=== PATIENT | female | born 1950 | race Caucasian/White ===

== ENCOUNTER → 2018-02-25 14:03 | Outpatient (CLI) | payer MEDICARE, SELFPAY ==
--- NOTE | 2018-02-25 14:05 | BI_ITS ---
MAMMOGRAPHY - BILATERAL SCREENING REASON FOR EXAM: Female, 67 years old. Routine annual screening examination. PERTINENT HISTORY: Non-contributory. Remote right excisional breast biopsy. TECHNIQUE: Digital bilateral breast meenu (3D mammographic acquisition) in the CC and MLO projections. 2-D mediolateral oblique (MLO) and craniocaudad (CC) views of both breasts were obtained. CAD: Full Field Digital Mammography with Computer Added Detection was performed. COMPARISON: Comparison is made with prior study dated October 30, 2016 and May 27, 2015. FINDINGS: Breast Composition: There are scattered areas of fibroglandular density. There are no dominant masses or suspicious calcifications. No other significant abnormalities are identified. There has been no significant change since the prior study. BI/SCREENING MAMM (CAD), BILAT IMPRESSION: Stable bilateral screening mammogram. Yearly follow-up mammogram recommended. (A) ASSESSMENT CATEGORY: BIRADS Category 1: Negative. A letter regarding these results will be sent to the patient by the facility within 30 days. Approximately 10% of breast cancers are not detected by mammography. A normal mammogram should not delay biopsy of a clinically suspicious abnormality. [id number] Electronically Signed: Louie Forbes MD at 9:54 EST Tel [phone], Service support ,
== END ==
PROVIDERS: Family Provider Family Medicine; PCP Family Medicine; Referring Provider Family Medicine; Visit Provider Family Medicine
DX: Z12.31 Encounter for screening mammogram for malignant neoplasm of breast (principal)
CPT/HCPCS: 77063; 77067

== ENCOUNTER → 2018-10-11 | Outpatient (CLI) | payer MEDICARE, SELFPAY ==
--- NOTE | 2018-10-11 15:29 | RAD_ITS ---
STUDY: X-RAY - CERVICAL SPINE REASON FOR EXAM: Female, 68 years old. Spasms. Radiculopathy. TECHNIQUE: 7 view(s) of the cervical spine were obtained including flexion and extension. COMPARISON: None FINDINGS: Normal anterior atlantoaxial articulation. Normal odontoid process. Normal cervical lordosis. Limited flexion and extension but with no subluxations. Prominent degenerative disc disease at C5-C6. There is mild multi-level osseous foraminal stenosis. The soft tissue structures are unremarkable. RAD/Cerv Spine Obl/Flex/Ext Comp IMPRESSION: No acute abnormality. Prominent degenerative changes at C5-C6. Electronically Signed: Keyshawn Dobbs MD at 17:18 EDT , Service support ,
[2018-10-11 17:15] LABS: Absolute Neutrophil Count 7.2 X10^3/uL (2.0-7.7); Basophil# 0.01 X10^3/uL; Basophil% 0.1 % (0-1); Eosinophil# 0.01 X10^3/uL; Eosinophils% 0.1 % (0-5); Hematocrit 40.1 % (37-47); Hemoglobin 13.4 g/dl (12.0-15.0); Lymphocyte % 19.6 % (19-41); Mean Corp Hgb Conc 33.4 g/gl (32-36); Mean Corpuscular Hgb 27.9 pg (27.0-32.0); Mean Corpuscular Volume 83.4 fL (81-99); Mean Platelet Vol. 11.1 fl (6.2-12.0); Monocyte# 0.58 X10^3/uL; Neutrophil # 7.15 X10^3/uL (2.7-7.7); POSITIVE COUNT NO; POSITIVE DIFFERENTIAL NO; POSITIVE MORPHOLOGY NO; Platelet Count 215 K/mm3 (150-450); RBC Distribution Width CV 12.6 % (11.6-14.6); RBC Distribution Width SD 37.9 fl (35.1-43.9); Red Blood Count 4.81 M/mm3 (4.2-5.4); White Blood Count 9.7 K/mm3 (4.4-11.0)
[2018-10-11 17:21] LABS: Erythrocyte Sedimentation Rate 11 mm/hr (0-30)
[2018-10-11 17:34] LABS: AST(SGOT) 21 U/L (15-37); Alanine Aminotransfer ALT/SGPT 25 U/L (13-56); Albumin, Serum 3.7 g/dL (3.2-5.0); Alkaline Phosphatase 91 U/L (45-117); Anion Gap 9 (5-15); BUN 18 mg/dL (7-18); BUN/Creat Ratio 21.6 RATIO (10-20); CRP 4.86 mg/L (0.0-3.0); Calcium,Total 8.8 mg/dL (8.5-10.1); Chloride 106 mmol/L (98-107); Creatinine, Serum 0.84 mg/dL (0.55-1.02); EST Glomerular Filtration Rate 73 mL/min (>60); Est Glom Filt Rate - Afr Amer 88 mL/min (>60); Globulin 3.7 g/dL (2.2-4.2); Glucose 93 mg/dL (74-106); Potassium 3.8 mmol/L (3.5-5.1); Protein, Total 7.4 g/dL (6.4-8.2); Sodium Level 141 mmol/L (136-145); Thyroid Stim Hormone (TSH) 1.13 uIU/mL (0.358-3.74); Vitamin B12 914 pg/mL (211-911)
== END | disposition home or self-care (01) ==
PROVIDERS: Family Provider Family Medicine; PCP Family Medicine; Referring Provider Family Medicine; Visit Provider Family Medicine
DX: M62.838 Other muscle spasm (principal); M54.12 Radiculopathy, cervical region; M50.90 Cervical disc disorder, unspecified, unspecified cervical region; E55.9 Vitamin D deficiency, unspecified; C49.9 Malignant neoplasm of connective and soft tissue, unspecified; R73.01 Impaired fasting glucose; R20.2 Paresthesia of skin; E53.8 Deficiency of other specified B group vitamins
CPT/HCPCS: 36415; 72052; 80053; 82306; 82607; 84439; 84443; 85025; 85652; 86140

== ENCOUNTER 2019-01-06 07:31 | Day surgery (SDC) | payer MEDICARE, SELFPAY ==
[2018-11-10 15:28] VITALS: BMI 33.7
--- NOTE | 2019-01-05 18:48 | PCM.HP.BLA ---
History and Physical Date of Admission: 01/06/19 HISTORY OF PRESENT ILLNESS 68 year old woman presents for evaluation for TBSE. She has concerns about a lesion on her left melolabial fold that has increased in size over the last several months and has developed irregular borders. She denies fever. She denies trauma. She denies recent infection. She denies bleeding. No ulceration. Lesion is nontender. PAST MEDICAL HISTORY Angioma Cancer Carpal tunnel syndrome Emotional depression Fibromyalgia Frequent headaches GERD (gastroesophageal reflux disease) ED (obstructive sleep apnea) Restless leg syndrome PAST SURGICAL HISTORY EXCISION PELVIC LEIOMYOSARCOMA hysterectomy laparoscopic gastric banding IMPLANTATION OF INTERSTIM ALLERGIES No Known Allergies MEDICATIONS anastrozole eszopiclone pramipexole venlafaxine ER FAMILY HISTORY Unknown - No problems noted. SOCIAL HISTORY Smoking Status: Former smoker how long ago did patient quit smokin YEARS alcohol intake: never substance use type: does not use REVIEW OF SYSTEMS General - Denies fever, fatigue, and weight loss. Eyes - Denies cataracts and glaucoma. ENT - Denies nasal congestion and sore throat. Endocrine - Denies excessive thirst and urination. Skin - Denies skin cancer. Has enlarging lesion left melolabial fold. Musculoskeletal - Denies joint pain, joint stiffness, weakness of muscles and joints, back pain, and arthritis. Neuro - Denies headaches. Cardiovascular - Denies chest pain, fatigue, and shortness of breath with exertion. Psych - Denies anxiety. Has depression. Respiratory - Denies chronic cough and shortness of breath. Has sleep apnea. Patient is a former smoker. Gastrointestinal - Denies nausea, vomiting, diarrhea, and constipation. Hematologic - Denies abnormal bruising and bleeding. Genitourinary - Denies hematuria and urinary frequency. PHYSICAL EXAMINATION General - Alert and Oriented. HEENT - PERRL. EOMI. Throat is clear. On the left melolabial fold is a nodular lesion that measures 5 mm. Slight coloration. Has irregular borders. Raised in configuration. No ulceration. Lesion is nontender. Neck - Supple and nontender. No cervical adenopathy. No suspicious lesions noted. Lungs - Clear to auscultation. Heart - Regular rate and rhythm. Abdomen - Soft and nondistended. Extremities - FROM. No axillary adenopathy. Radial pulses are palpable. No suspicious lesions noted. Neuro - CN II-XII grossly intact. Psych - Normal mood and affect. ASSESSMENT 1. 5 mm lesion left melolabial fold. 2. Former smoker. PLAN Recommend excision of the lesion left melolabial fold area and send the lesion to Pathology as a frozen section for analysis to rule out carcinoma. If carcinoma is present then further excision will be done with possible skin flap reconstruction. Surgery would be done under local anesthesia and IV sedation on an outpatient basis. Patient was informed of the risks and complications of the procedure including alternatives to surgery. These were discussed with the patient personally. Patient voices understanding and wishes to proceed. Some of the risks and complications were included in a form from the [employer].
[2019-01-06 07:53] VITALS: BP 131/76; PULSE 66; RESP 16; TEMP 36.8; O2SAT 100; BMI 34.6
[2019-01-06] MEDS: Lactated Ringers 1,000 ML 100 ML IV (08:06)
--- NOTE | 2019-01-06 08:55 | LES_PTH ---
PATIENT: KAYLA WILKERSON [place] [facility] [id number] AGE/SX: 68/F ROOM: RE01/06/[address]: Dr. Dallas Pryor MD : 1950 BED: DIS: 01/06/2019 SPEC #: [id number] RECD: 01/06/19 12:58 STATUS: ROSEANN REAntonio #: [id number] PALAK: 01/06/19 08:[address]: Dallas Pryor DEPT: SURGICAL PATHOLOGY RECD BY: Zeke Aquino ENTERED: 01/06/19 13:36 SP TYPE: Lesion OTHR DR: Dr. Douglas Willson MD Tissues: Skin of face, NOS Procedures: Surgery Specimen Level IV HEADER OPERATION: Excision lesion, melolabial fold by commissure PRE-OP DIAGNOSIS: 5 mm lesion left melolabial fold TISSUE SUBMITTED: 5 mm lesion left melolabial fold MICROSCOPIC DIAGNOSIS Left melolabial fold lesion, excisional biopsy: Consistent with hydrocystoma. FLORA:jeffry 01/09/19 COMMENT Case has been reviewed in consultation with Dr. Napier who concurs with the above diagnosis. IDC:AM MICROSCOPIC DESCRIPTION Slides are reviewed. GROSS DESCRIPTION Received in fixative is one container labeled with the patient's name and designated 5 mm lesion left melolabial fold. The specimen consists of an irregular piece of skin measuring 1 x 0.5 x 0.1 cm. A suture is noted, however, is not identified. The suture area is inked black. The rest of the specimen is inked blue. The specimen is submitted entirely in one cassette. It will be sectioned at the time of embedding. / FLORA:jeffry 01/06/19 TC:5 CPT: 86804
[2019-01-06] MEDS: Mupirocin Ointment 22gm Tube 1 APPLIC (09:37)
--- NOTE | 2019-01-06 09:46 | OP.PCM_ITS ---
Report of Operation Date of Procedure: 01/06/19 Pre-Operative Diagnosis: 1. 5 mm painful lesion left melolabial fold. 2. Former smoker. Post-Operative Diagnosis: Same. Surgery/Procedure Performed:: Excision 5 mm painful lesion left melolabial fold with 15 mm layered closure. Description of Surgical Findings:: 68 year old woman presents for evaluation for TBSE. She has concerns about a lesion on her left melolabial fold that has increased in size over the last several months and has developed irregular borders. She denies fever. She denies trauma. She denies recent infection. She denies bleeding. There is some discomfort when the lesion gets bumped. No ulceration. Patient was informed of the risks and complications of the procedure including alternatives to surgery. These were discussed with the patient personally. Patient voices understanding and wishes to proceed. Some of the risks and complications were included in a form from the [employer]. 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 Specimen's removed: Lesion left melolabial fold to Pathology. Drains: None. Estimated Blood Loss (mL): 2 ml. Description of Procedure: Patient was taken to OR in supine position and was given IV sedation. The left face was prepped and draped in the usual fashion. SCD's were placed for DVT prophylaxis. Perioperative antibiotics were given intravenously. The lesion left melolabial fold was infiltrated with xylocaine and epinephrine. After waiting 5 minutes for the anesthetic to take effect, I started to excise the lesion in an intradermal fashion because the plan was to send the lesion to Pathology as a frozen section for analysis to rule out carcinoma. However during the attempt at intradermal excision, the lesion was cystic in nature with some thickened mucus drainage. Therefore no frozen section will be done today. The cystic lesion created a subcutaneous defect so wound closure will be needed. Clinically the cystic lesion looked benign in nature. So wound closure will be done in a layered fashion. I excised this cystic lesion in an oblique elliptical fashion within the skin crease down into the subcutaneous tissue. A suture was placed at 12 oclock position for pathology orientation. The lesion was sent to Pathology for analysis to rule out carcinoma. I excised the lesion with a 1 mm margin in all directions thus making it a 7 mm excision with a 15 mm layered closure. Hemostasis was obtained with electrocautery. The wound was closed in a layered fashion with 5-0 Monocryl interrupted sutures for the deep dermis and subcutaneous tissue. The skin was approximated with 6-0 Prolene simple interrupted sutures. Steri-strips were applied followed by antibiotic ointment. Patient tolerated the procedure well and was sent to PACU in satisfactory condition. Patient will be sent home on antibiotics and pain medication. She will keep her head elevated during the initial postoperative period. Patient will followup in a week for a wound check and for discussion of the pathology report and for removal of the sutures. Grafts/Implants Used: None. - Complications None. - Admit VTE Documentation VTE Present on Admission: No VTE Mechan Device Prophylaxis: SCD's VTE Pharm Prophylaxis ordered?: No Code Visit Surgery Charges CPT - 90080 ICD-10 - D23.9, R20.8, D49.2, Z87.891 09080 D23.9, R20.8, D49.2, Z87.891
[2019-01-06 09:47] VITALS: BP 111/67; BP 131/76; PULSE 68; RESP 16; TEMP 36.4; O2SAT 100
[2019-01-06 09:50] VITALS: BP 121/77; BP 131/76; PULSE 61; RESP 16; O2SAT 100
--- NOTE | 2019-01-06 09:52 | DCINST_ITS ---
You will use the following diet at home:: No restrictions Discharge Activity: May not drive while taking narcotic pain medications., May Shower - in two days., - - keep head elevated. no heavy lifting. May shower in (days): 2 May resume sexual activity in: No Restrictions Ice area for (Minutes): 5 - as needed for facial swelling. Weight Bearing Status: Weight bearing as tolerated Lifting Restrictions: 20 lbs. Keep extremity elevated above heart level: - - elevate head. Call your doctor if your incision/area has: Continuous Slow Oozing, Sudden Increased Bleeding, Increased Pain/ Swelling, Increased Redness, Foul Smelling Discharge, Swelling at the incision site Call your doctor if you observe: Fever of 101 or Higher, Coldness, Increased Pain, Shortness of breath, Chest pain, Calf discomfort, Uncontrolled pain Suture Line Care: - - apply antibiotic ointment to suture line daily. Cleanse incision/area with: - - may get incision wet in the shower in two days. Allergies/Adverse Reactions: Allergies No Known Allergies Allergy (Verified 01/06/19 07:52) Medications to take at Discharge anastrozole 1 mg tablet 1 mg PO DAILY 11/07/18 eszopiclone 3 mg tablet 3 mg PO QHS tab 11/07/18 pramipexole 1.5 mg tablet 1.5 mg PO QHS 11/07/18 venlafaxine ER 150 mg capsule,extended release 24 hr 150 mg PO DAILY 11/07/18 venlafaxine ER 75 mg capsule,extended release 24 hr 75 mg PO DAILY 11/07/18 Clindamycin HCl [Cleocin] 300 mg PO TID #12 cap 01/06/19 Lactobacillus Acidophilus/Fos [Acidophilus Probiotic Tablet] 1 ea PO BID #10 tab 01/06/19 Oxycodone HCl/Acetaminophen [Percocet 5/325] 1 tab PO TID PRN PRN 5 Days #15 tab 01/06/19 The following prescriptions were given: Lactobacillus Acidophilus/Fos [Acidophilus Probiotic Tablet] 1 ea PO BID #10 tab Prescription Printed Clindamycin HCl [Cleocin] 300 mg PO TID #12 cap Prescription Printed Oxycodone HCl/Acetaminophen [Percocet 5/325] 1 tab PO TID PRN PRN 5 Days #15 tab PRN Reason: Pain Prescription Printed Primary Care Physician: Douglas Willson MD [Primary Care Provider] - Test Results: Test results from this visit will be discussed in further detail at your follow- up appointment, if applicable. Please Follow Up With: Dallas Pryor MD When: one week. call [phone] for appt. Proposed Discharge Date: 01/06/19
[2019-01-06 09:55] VITALS: BP 115/73; BP 131/76; PULSE 62; RESP 16; O2SAT 100
[2019-01-06 09:56] VITALS: BP 120/72; BP 131/76; PULSE 60; RESP 16; TEMP 36.4; O2SAT 100
[2019-01-06 10:22] VITALS: BP 131/76
== END 2019-01-06 10:23 | disposition home or self-care (01) ==
LOC: SDC 07:32 → AC 07:32
PROVIDERS: Family Provider Family Medicine; PCP Family Medicine; Referring Provider Surgery; Visit Provider Surgery
PROC: (CPT 11441; principal; 2019-01-06 08:45)
DX: D23.39 Other benign neoplasm of skin of other parts of face (principal); R52 Pain, unspecified; G56.00 Carpal tunnel syndrome, unspecified upper limb; F32.9 Major depressive disorder, single episode, unspecified; M79.7 Fibromyalgia; K21.9 Gastro-esophageal reflux disease without esophagitis; G47.33 Obstructive sleep apnea (adult) (pediatric); G25.81 Restless legs syndrome; Z85.831 Personal history of malignant neoplasm of soft tissue; Z78.0 Asymptomatic menopausal state; Z79.899 Other long term (current) drug therapy; Z87.891 Personal history of nicotine dependence
CPT/HCPCS: 11441; 12051; 88305; J7120

== ENCOUNTER → 2019-03-08 08:28 | Outpatient (CLI) | payer MEDICARE, SELFPAY ==
[2019-01-12 15:49] VITALS: BMI 34.6
--- NOTE | 2019-03-08 08:30 | BI_ITS ---
MAMMOGRAPHY - BILATERAL SCREENING REASON FOR EXAM: Female, 68 years old. Routine annual screening examination. PERTINENT HISTORY: Non-contributory. Remote right breast excisional biopsy. TECHNIQUE: Digital bilateral breast gregory (3D mammographic acquisition) in the CC and MLO projections. 2-D mediolateral oblique (MLO) and craniocaudad (CC) views of both breasts were obtained. CAD: Full Field Digital Mammography with Computer Added Detection was performed. COMPARISON: Comparison is made with prior study dated February 25, 2018 and October 30, 2016. FINDINGS: Breast Composition: The breasts are almost entirely fatty. There are no dominant masses or suspicious calcifications. No other significant abnormalities are identified. There has been no significant change since the prior study. BI/SCREEN MAMM (CAD) W/GREGORY BILAT IMPRESSION: Stable bilateral screening mammogram. Yearly follow-up mammogram recommended. (A) ASSESSMENT CATEGORY: BIRADS Category 1: Negative. A letter regarding these results will be sent to the patient by the facility within 30 days. Approximately 10% of breast cancers are not detected by mammography. A normal mammogram should not delay biopsy of a clinically suspicious abnormality. [id number] Electronically Signed: Louie Forbes, at 10:44 EST , Service support ,
== END ==
PROVIDERS: Family Provider Family Medicine; PCP Family Medicine; Referring Provider Family Medicine; Visit Provider Family Medicine
DX: Z12.31 Encounter for screening mammogram for malignant neoplasm of breast (principal)
CPT/HCPCS: 77063; 77067

== ENCOUNTER 2019-04-01 18:02 | Emergency (ER) | payer MEDICARE, SELFPAY ==
[2019-01-12 15:49] VITALS: BMI 34.6
[2019-04-01 18:03] VITALS: BP 165/99; PULSE 76; RESP 16; TEMP 36.8; O2SAT 98; BMI 35.3
--- NOTE | 2019-04-01 19:45 | ED.DCSUM_ITS ---
- ER Visit Summary Date of Service: 04/01/19 Chief Complaint: Left facial swelling History of Present Illness: The patient is a 68 F who presents with left facial swelling that began today. Patient states it is over the left parotid area. Patient describes the pain is nagging. Patient denies any fevers or chills. Patient admits to a recent sore throat. Patient states the pain does radiate into her neck. Patient states nothing makes it better or worse. Patient is concerned over possible mumps. Physical Examination: Vital signs are stable. Patient is afebrile. Patient is in no acute distress. Oral mucosa is pink and moist. Oropharynx is clear. There is some saliva coming from Stensen's duct. There is mild tenderness over the left parotid gland. There is no erythema or warmth. There is no abscess formation. Neck is supple. Trachea is midline. There is no JVD or lymphadenopathy noted. Heart was regular rate and rhythm. Lungs are clear and equal bilaterally. Emergency Department Course and Treatment: Patient was advised that this is unlikely due to mumps since it is unilateral, she is afebrile, and there is no lymphadenopathy. This is more likely parotid sialoadenitis. This could be from a sialolith. Patient was instructed to use warm compresses. Patient was instructed to eat sour candy to improve elevation. Patient was instructed to follow-up with her primary care physician in 5 to 7 days. Patient understood and was agreeable with the plan. All questions were answered. Disposition: Discharge home Impression: Sialoadenitis This note was generated with [employer] dictation software. It may contain incorrect words, spelling, and punctuation that were not noted in review of the chart prior to signing ED Disposition - Plan for ED Patient: Disposition: Home or Assisted Living Diagnosis: Sialoadenitis, unspecified Instructions: SALIVARY GLAND SWELLING, Unk Cause, Salivary Duct Obstruction Referrals: Douglas Willson MD [Primary Care Provider] - 5-7 Days
[2019-04-01 20:07] VITALS: BP 165/99; PULSE 76; RESP 16; O2SAT 98
== END 2019-04-01 20:08 | disposition home or self-care (01) ==
LOC: ED 19:51
PROVIDERS: Emergency Provider Emergency Medicine; Family Provider Family Medicine; PCP Family Medicine
DX: K11.20 Sialoadenitis, unspecified (principal); F32.9 Major depressive disorder, single episode, unspecified; F41.9 Anxiety disorder, unspecified
CPT/HCPCS: 99282

== ENCOUNTER → 2019-08-02 09:44 | Outpatient (CLI) | payer MEDICARE, SELFPAY ==
--- NOTE | 2019-08-02 09:48 | RAD_ITS ---
STUDY: X-RAY STERNUM REASON FOR EXAM: Female, 69 years old. 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 COMPARISON: None. FINDINGS: Normal bilateral sternoclavicular articulations. Normal manubrium. Normal sternomanubrial joint. Normal sternal body and xiphoid process. There is no demonstrated fracture of the sternum. Normal visualized anterior ribs. Normal visualized lungs. The soft tissue structures are unremarkable. RAD/Sternum min 2 Views IMPRESSION: Normal x-ray examination of the sternum. Electronically Signed: Louie Forbes, at 11:15 EDT , Service support ,
--- NOTE | 2019-08-02 09:48 | RAD_ITS ---
STUDY: X-RAY - LEFT CLAVICLE REASON FOR EXAM: Female, 69 years old. 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 COMPARISON: None. FINDINGS: Normal clavicle. Normal acromioclavicular articulation. Normal visualized sternoclavicular articulation. Normal visualized pulmonary apex. RAD/Clavicle IMPRESSION: Normal x-ray examination of the clavicle. Electronically Signed: Louie Forbes, at 11:14 EDT , Service support ,
== END ==
PROVIDERS: PCP Family Medicine; Referring Provider Family Medicine; Visit Provider Family Medicine
DX: M25.512 Pain in left shoulder (principal); C49.9 Malignant neoplasm of connective and soft tissue, unspecified
CPT/HCPCS: 71120; 73000

== ENCOUNTER 2019-09-17 18:40 | Emergency (ER) | payer MEDICARE, SELFPAY ==
[2019-09-17 18:41] VITALS: BP 161/89; PULSE 75; RESP 18; TEMP 36.7; O2SAT 100; BMI 36.6
--- NOTE | 2019-09-17 18:52 | RAD_ITS ---
STUDY: X-RAY - LEFT KNEE REASON FOR EXAM: Female, 69 years old. FALL DOWN STEPS, PAIN MEDIAL KNEE AND ANKLE AREA TECHNIQUE: 4 view(s) of the knee. COMPARISON: None. FINDINGS: There is demineralization of the visualized distal femur. There is demineralization of the tibia and fibula. Normal proximal tibiofibular articulation. There is no demonstrated fracture. Normal medial femorotibial compartment. Normal lateral femorotibial compartment. There is mild degenerative arthrosis of the patellofemoral articulation. There is a moderate volume joint effusion. The soft tissue structures are unremarkable. RAD/Knee 4 or More Views IMPRESSION: Degenerative arthrosis. Moderate size joint effusion. Electronically Signed: Mychal Maravilla MD at 19:47 EDT , Service support ,
--- NOTE | 2019-09-17 18:52 | RAD_ITS ---
STUDY: X-RAY - LEFT FOOT CLINICAL: Female, 69 years old. FALL DOWN STEPS, PAIN TOP OF FOOT TECHNIQUE: 3 view(s) of the foot. COMPARISON: None. FINDINGS: Normal talus, calcaneus, and tarsal bones. Normal visualized subtalar, talonavicular, calcaneocuboid, tarsal and tarsometatarsal articulations. Normal metatarsi. A small plantar calcaneal spur is present. Mild soft tissue swelling is present over the dorsum of the foot. No fracture is seen. RAD/Foot min 3 Views IMPRESSION: 1. A small plantar calcaneal spur is present. Mild soft tissue swelling is present over the dorsum of the foot. No fracture is seen. Electronically Signed: Mychal Maravilla MD at 19:43 EDT , Service support ,
--- NOTE | 2019-09-17 18:52 | ED.DCSUM_ITS ---
History of Present Illness Chief Complaint: Fall Informant: Patient Onset: Yesterday Narrative: Patient states that yesterday while in [place] she fell down a flight of stairs. She states her left leg was bent behind her. She notes some abrasions to the medial aspect of the foot and ankle. She notes pain on the first metatarsal and second metatarsal. She notes some pain at the ankle and slightly above it and she notes left knee pain and swelling. nt would prefer that I not perform a physical exam because she is apprehensive about pain. Past Medical History - Allergies and Home Meds Allergies/Adverse Reactions: Allergies No Known Allergies Allergy (Verified 09/17/19 18:43) Primary Care Physician: Douglas Willson MD [Primary Care Provider] - Smoking Status: Former smoker Review of Systems General: Denies: Chills, Fever, Sweats Eyes: Denies: Visual changes - bilaterally, Diplopia ENT: Denies: Rhinorrhea, Sore throat Cardiovascular: Denies: Chest pain, Palpitations Respiratory: Denies: Dyspnea, Cough, Dyspnea on exertion Gastrointestinal: Denies: Abdominal pain, Nausea, Vomiting, Diarrhea, Melena, Hematochezia Genitourinary: Denies: Dysuria, Hematuria, Frequency Musculoskeletal: Reports: Extremity Pain. Denies: Back pain Skin: Denies: Rash, Wounds Neurological: Denies: Headache, Weakness, Numbness Physical Exam Vital Signs/Narrative: Vital Signs Temp Pulse Resp BP Pulse Ox 09/17/19 18:41 98.0 F 75 18 161/89 H 100 Inital Vital Signs reviewed: Yes General: Well nourished, Well developed, No Acute Distress Head: Normocephalic, Atraumatic Eyes: Perrl, EOMI ENT: Moist mucous membranes, No rhinorrhea Neck: Supple, Nontender Cardiovascular: Regular rate, Regular rhythm, No murmurs Respiratory: No distress, CTA bilaterally, Chest nontender Abdomen: Soft, Nontender, Nondistended, Normal bowel sounds Back: Nontender, Normal Inspection Extremities: No edema, - - There is an obvious effusion. Patient has tenderness and swelling diffusely of the left knee. Ligamentous testing is extremely difficult due to the patient's apprehension. There is some tenderness and swelling along the first metatarsal. There is abrasion over the medial ankle. Skin: Normal color, No rash Neurological: Alert, Oriented x3, Cranial nerves II-XII grossly intact, Normal Strength, Normal Sensation Diagnostic/Tx/Re-eval Clinical Impression(s) from Imaging Studies Foot X-Ray 09/17/19 18:52 IMPRESSION: 1. A small plantar calcaneal spur is present. Mild soft tissue swelling is present over the dorsum of the foot. No fracture is seen. Electronically Signed: Mychal Maravilla MD at 19:43 EDT , Service support , Knee X-Ray 09/17/19 18:52 IMPRESSION: Degenerative arthrosis. Moderate size joint effusion. Electronically Signed: Mychal Maravilla MD at 19:47 EDT , Service support , Tibia/Fibula X-Ray 09/17/19 18:52 IMPRESSION: Normal x-ray examination of the tibia and fibula. Electronically Signed: Mychal Maravilla MD at 19:47 EDT , Service support , - Medical Decision Making X-rays were negative. I informed the patient that given the joint effusion and her mechanism of injury I am certainly very worried about ligamentous injury. Would like to put her on crutches but she is not sure she can do it so she is going to try to use a cane. Help Kelvin wrap her give her pain medication. She would like to follow-up with Dr. Vance. ED Disposition - Plan for ED Patient: Disposition: Home or Assisted Living Diagnosis: Foot contusion, Ankle abrasion, Knee effusion, left, Fall down stairs Instructions: ED SOFT TISSUE CONTUSION, ED Effusion Knee, ED Sprain Knee Prescriptions: Hydrocodone Bitart/Apap 5-325 [Childwold 5MG-325MG] 1 tab PO Q6H PRN PRN 3 Days #12 tab PRN Reason: Pain Prescription Printed Referrals: Dana Vance DO [STAFF PHYSICIAN] - 1-2 Weeks
--- NOTE | 2019-09-17 18:52 | RAD_ITS ---
STUDY: X-RAY - LEFT TIBIA AND FIBULA REASON FOR EXAM: Female, 69 years old. FALL DOWN STEPS, PAIN MEDIAL KNEE AND ANKLE AREA TECHNIQUE: 2 view(s) of the tibia and fibula were obtained. COMPARISON: None. FINDINGS: Normal visualized tibia. Normal visualized fibula. No fracture or displacement is seen. The soft tissue structures are unremarkable. RAD/Tibia & Fibula 2 Views IMPRESSION: Normal x-ray examination of the tibia and fibula. Electronically Signed: Mychal Maravilla MD at 19:47 EDT , Service support ,
[2019-09-17] MEDS: HYDROcodone Bitartrate/Apap 5/325 Tablet PO (20:11)
[2019-09-17 20:16] VITALS: RESP 18
== END 2019-09-17 20:16 | disposition home or self-care (01) ==
PROVIDERS: Emergency Provider Emergency Medicine; PCP Family Medicine
DX: S90.32XA Contusion of left foot, initial encounter (principal); S90.512A Abrasion, left ankle, initial encounter; M77.32 Calcaneal spur, left foot; M25.462 Effusion, left knee; M17.12 Unilateral primary osteoarthritis, left knee; W10.9XXA Fall (on) (from) unspecified stairs and steps, initial encounter; Y93.9 Activity, unspecified; Y92.9 Unspecified place or not applicable; Z87.891 Personal history of nicotine dependence
CPT/HCPCS: 73564; 73590; 73630; 99283

== ENCOUNTER → 2019-11-09 09:15 | Outpatient (CLI) | payer MEDICARE, SELFPAY ==
[2019-09-21 10:52] VITALS: BMI 36.6
--- NOTE | 2019-11-09 09:16 | RAD_ITS ---
STUDY: X-RAY - PELVIS AND LEFT HIP REASON FOR EXAM: Female, 69 years old. LEFT HIP PAIN S/P FALL DOWN STAIRS X2 MONTHS AGO TECHNIQUE: 3 views of the pelvis and hip. COMPARISON: None. FINDINGS: There is a non-specific bowel gas pattern. Normal visualized soft tissue structures. Normal bilateral iliac wings, sacroiliac joints and visualized sacrum. Normal bilateral superior and inferior pubic rami. There are degenerative changes of the pubic symphysis with articular narrowing and sclerosis. Normal bilateral ischial tuberosities. There is a right sacral stimulator. Normal visualized femoral head. Normal acetabulum. Normal hip joint. RAD/HIP, UNI W/ Pelvis 2-3 Views IMPRESSION: No definite acute or significant abnormality seen. Electronically Signed: Keyshawn Dobbs MD at 18:38 EDT , Service support ,
--- NOTE | 2019-11-09 09:16 | RAD_ITS ---
STUDY: X-RAY - LUMBAR SPINE REASON FOR EXAM: Female, 69 years old. LEFT HIP PAIN S/P FALL DOWN STAIRS X2 MONTHS AGO TECHNIQUE: 5 view(s) of the lumbar spine were obtained. COMPARISON: None FINDINGS: Normal lumbar lordosis. There is no substantial scoliosis. There is 7 mm anterolisthesis of L4 on L5, otherwise normal alignment of the vertebrae. Normal vertebral bodies and endplates. There is multi-level degenerative disc disease with multi-level disc space narrowing. There is no demonstrated fracture. The soft tissue structures are unremarkable. RAD/L/S Spine Min 4 Views IMPRESSION: No acute fracture or dislocation. Anterolisthesis of L4 on L5. Mild to moderate multilevel degenerative changes. Electronically Signed: Keyshawn Dobbs MD at 19:00 EDT , Service support ,
== END ==
PROVIDERS: PCP Family Medicine; Referring Provider Physician Assistant; Visit Provider Physician Assistant
DX: M79.18 Myalgia, other site (principal)
CPT/HCPCS: 72110; 73502

== ENCOUNTER → 2020-04-02 14:46 | Outpatient (CLI) | payer MEDICARE, SELFPAY ==
[2019-11-09 10:46] VITALS: BMI 36.6
--- NOTE | 2020-04-02 14:49 | BI_ITS ---
MAMMOGRAPHY - BILATERAL SCREENING REASON FOR EXAM: Female, 69 years old. Routine annual screening examination. PERTINENT HISTORY: Non-contributory. TECHNIQUE: Digital bilateral breast gregory (3D mammographic acquisition) in the CC and MLO projections. 2-D mediolateral oblique (MLO) and craniocaudad (CC) views of both breasts were obtained. CAD: Full Field Digital Mammography with Computer Added Detection was performed. COMPARISON: 03/08/2019 and 02/25/2018 and 10/22/2016 FINDINGS: Breast Composition: The breasts are almost entirely fatty. There are no dominant masses or suspicious calcifications. No other significant abnormalities are identified. BI/SCREEN MAMM (CAD) W/GREGORY BILAT IMPRESSION: Stable bilateral screening mammogram. Yearly follow-up mammogram recommended. (A) ASSESSMENT CATEGORY: BIRADS Category 2: Benign. A letter regarding these results will be sent to the patient by the facility within 30 days. Approximately 10% of breast cancers are not detected by mammography. A normal mammogram should not delay biopsy of a clinically suspicious abnormality. [id number] Electronically Signed: Yenifer Jenkins, at 15:50 EST Tel , Service support ,
--- NOTE | 2020-04-02 14:52 | BD_ITS ---
STUDY: DUAL ENERGY X-RAY ABSORPTIOMETRY / DXA REASON FOR EXAM: Female, 69 years old. THERAPIST PHYS-SURGICAL AT 49 YRS OLD -- TAKES AROMATASE INHIBITOR FOR LEOMYOSARCOMA -- HX OF HRT -- HX OF SMOKING -- TAKES VITAMIN D -- DOES MODERATE AMOUNT OF EXERCISE -- CHRISTINA OF 0.5 INCH TECHNIQUE: Bone Mineral Density (BMD) measurements of lumbar spine and bilateral hips were obtained. COMPARISON: Comparison is made with prior study dated 04/19/2014. FINDINGS: Lumbar Spine (L1-L4): g/cm2 (1.094) / T-score (-0.6) / Z-score (1.0) Findings are suggestive of normal bone density with a low fracture risk. Left Femur Total: g/cm2 (0.886) / T-score (-1.0) / Z-score (0.4) Left Femoral Neck: g/cm2 (0.856) / T-score (-1.3) / Z-score (0.3) Right Femur Total: g/cm2 (0.904) / T-score (-0.8) / Z-score (0.5) Right Femoral Neck: g/cm2 (0.816) / T-score (-1.6) / Z-score (0.0) The T-Scores on the most recent prior examination were: Lumbar Spine (L1-L4): There has been worsening of bone density since the previous examination. Left Femur Total: which represents a worsening of 17.5%. Right Femur Total: which represents a worsening of 15.4%. BD/Dexa Bone Density Study IMPRESSION: The patient is considered osteopenic as outlined below according to World [employer]x Organization (WHO) criteria with a moderate fracture risk. There has been worsening of bone density since the previous examination. Reference Information: The T-score is the number of standard deviations above or below the standard which is normal for young adults at their peak bone mineral density. The World Health Organization (WHO) interprets the T-scores as follows: Above -1 Normal bone density Between -1 and -2.5 Osteopenia Equal to / or below -2.5 Osteoporosis As a practical clinical guideline, osteopenia may be graded as follows: Mild -1 through -1.5 Moderate -1.6 through -2.0 Severe -2.1 through -2.4 The Z-score is the number of standard deviations above or below age-matched controls. A Z-score of less than -1.5 would be considered abnormal. References: 1. NIH Osteoporosis and Related Bone Diseases www osteo.org 2. International Society for Clinical Densitometry www iscd.org 3. National Osteoporosis Foundation www nof.org Electronically Signed: Louie Forbes, at 14:46 EST , Service support ,
== END ==
PROVIDERS: PCP Family Medicine; Referring Provider Family Medicine; Visit Provider Family Medicine
DX: Z12.31 Encounter for screening mammogram for malignant neoplasm of breast (principal); Z78.0 Asymptomatic menopausal state
CPT/HCPCS: 77063; 77067; 77080

== ENCOUNTER → 2020-08-23 20:00 | Outpatient (CLI) | payer MEDICARE, SELFPAY ==
[2020-05-08 11:46] VITALS: BMI 36.6
== END ==
PROVIDERS: PCP Family Medicine; Referring Provider Family Medicine; Visit Provider Family Medicine
DX: G47.33 Obstructive sleep apnea (adult) (pediatric) (principal)
CPT/HCPCS: 95811

== ENCOUNTER → 2020-09-24 09:00 | Outpatient (CLI) | payer MEDICARE, SELFPAY ==
[2020-09-09 07:54] VITALS: BMI 35.4
== END ==
PROVIDERS: PCP Family Medicine; Visit Provider Nurse Practitioner Acute Care
DX: Z46.89 Encounter for fitting and adjustment of other specified devices (principal)

== ENCOUNTER → 2020-11-12 10:50 | Outpatient (CLI) | payer MEDICARE, SELFPAY ==
[2020-10-28 07:45] VITALS: BMI 35.2
== END ==
PROVIDERS: PCP Family Medicine; Referring Provider Nurse Practitioner Acute Care; Visit Provider Nurse Practitioner Acute Care
DX: G47.33 Obstructive sleep apnea (adult) (pediatric) (principal)
CPT/HCPCS: 98960; G0463

== ENCOUNTER → 2021-01-06 08:19 | Outpatient (CLI) | payer MEDICARE, SELFPAY ==
--- NOTE | 2021-01-06 08:22 | CT_ITS ---
INDICATION: Other intervertebral disc degeneration, lumbosacra EXAMINATION: CT LUMBAR SPINE - CT Spine Lumbar W/O Contrast Injection TECHNIQUE: Helically acquired images were obtained of the lumbar spine. 2D reformats were reviewed. A radiation dose optimization technique was used for this scan. IV Contrast dosage and agent: None. COMPARISON: None. FINDINGS: Levoscoliosis of the lumbar spine visualized with apex along the left lateral aspect of the L2-3 intervertebral disc space. Mild exaggeration of the normal lordosis of the columns of the lumbar spine visualized with grade 1 anterolisthesis of L4 4 over L5 seen. Decreased intervertebral disc height visualized most prominent at L4-L5. Nitrogen disc phenomenon visualized at L4-L5 and L5-S1. L1-L2 demonstrates a circumferential disc bulges hypertrophic changes in the facet joints and ligamentum flavum, suggestion of mild narrowing of the spinal canal and left neuroforamina, no significant narrowing of the right neural foramina seen at this level. L2-L3 demonstrates a circumferential disc bulges hypertrophic changes in the facet joints and ligamentum flavum, moderate narrowing of the spinal canal and moderate narrowing of bilateral neural foramina is seen at this level. L3-L4 demonstrates a circumferential disc bulge with prominent hypertrophic changes in the facet joints and ligamentum flavum, severe narrowing of the spinal canal with severe narrowing of bilateral neural foramina visualized at this level. L4-L5 demonstrates a circumferential disc bulges hypertrophic changes in the facet joints and ligamentum flavum, severe narrowing of the spinal canal and severe narrowing of bilateral neural foramina visualized at this level. L5-S1 demonstrates a circumferential disc bulges hypertrophic changes in the facet joints and ligamentum flavum, no significant narrowing of the spinal canal is visualized at this level, moderate narrowing of the right neural foramina and mild narrowing of the left neuroforamina seen at this level. Visualized abdominal aorta is not dilated. There is no retroperitoneal adenopathy. CT/Spine Lumbar without Contrast IMPRESSION: Multilevel degenerative intervertebral disc disease visualized most prominent at L4-L5 and L3-L4 where there is severe narrowing of the spinal canal and neural foramina seen. Electronically Signed: Ike Banks MD at 10:52 EDT Tel , Service support ,
== END ==
PROVIDERS: PCP Family Medicine; Referring Provider Anesthesiology Pain Medicine; Visit Provider Anesthesiology Pain Medicine
DX: M51.37 Other intervertebral disc degeneration, lumbosacral region (principal); J32.9 Chronic sinusitis, unspecified
CPT/HCPCS: 72131; 87070; 87205

== ENCOUNTER → 2021-02-14 07:10 | Outpatient (CLI) | payer MEDICARE, SELFPAY ==
--- NOTE | 2021-02-14 07:12 | CT_ITS ---
STUDY: CT CHEST, ABDOMEN T PELVIS WITH CONTRAST REASON FOR EXAM: Female, 70 years old. PULMONARY NODULE. History of leiomyosarcoma with lung metastasis. RADIATION DOSAGE (If Supplied By Facility): CTDIvol = ( 36.40 ) mGy, DLP = ( 2268.99 ) mGycm TECHNIQUE: Transaxial imaging was performed following intravenous administration of Oral and amp; IV Readi-CAT and amp; 100mL Isovue-370. Individualized dose optimization techniques were used for this CT. COMPARISON: None FINDINGS: CHEST Small benign-appearing bilateral axillary lymph nodes. There are 3 adjacent soft tissue nodules in the anterior medial aspect of the right upper lobe. The larger nodule measures 2.3 size by 1.6 cm. An adjacent nodule measures 1.4 size by 1.1 cm. There is also evidence of a 6 Mm Nodule. There is a 7.9 mm noncalcified nodule in the peripheral pleural-based aspect of the left lower lobe. There is no demonstrated pleural abnormality. Normal heart and pericardium. Normal mediastinum. Normal hilar regions. Normal unenhanced pulmonary arteries. Normal aorta arch and descending thoracic aorta. Normal osseous structures. There is no demonstrated abnormality of the visualized upper abdomen. ABDOMEN Diffuse fatty infiltration of the liver. There are multiple gallstones. Normal spleen. Normal pancreas. Normal bilateral adrenal glands. Normal right kidney. Normal left kidney. The patient is status post subtotal gastrectomy. Normal small intestine. There are multiple colonic diverticula consistent with diverticulosis. The appendix is visualized and appears normal. There is scattered atherosclerotic calcification of the abdominal aorta, without a demonstrated aneurysm. Normal inferior vena cava. There is borderline retroperitoneal lymphadenopathy with enlarged nodes no greater than 10mm in the short axis diameter. There is a small umbilical hernia containing fat. There are degenerative changes of the visualized lumbar spine. PELVIS Normal urinary bladder. The patient is status post hysterectomy. There is no pelvic fluid. There is no pelvic lymphadenopathy or mass lesion. Battery pack from a pain stimulator is seen overlying the right gluteal region. There is diffuse atherosclerotic calcification of the pelvic arteries. CT/CT Chest, Abd, Pel w/Contrast IMPRESSION: Pulmonary nodules in the anterior medial aspect of the right upper lobe as described. Fatty infiltration of the liver. Multiple gallstones. Sigmoid diverticulosis. Electronically Signed: Louie Forbes MD at 13:12 EST , Service support ,
[2021-02-14 07:25] LABS: CREATININE FINGERSTICK 0.9 mg/dL (0.55-1.02); EGFR FINGERSTICK > 60.0000 mL/min (>60)
== END ==
PROVIDERS: PCP Family Medicine; Referring Provider Obstetrics & Gynecology; Visit Provider Obstetrics & Gynecology
DX: C49.9 Malignant neoplasm of connective and soft tissue, unspecified (principal); R91.8 Other nonspecific abnormal finding of lung field
CPT/HCPCS: 71260; 74177; Q9967

== ENCOUNTER 2021-04-01 06:53 | Day surgery (SDC) | payer MEDICARE, SELFPAY ==
[2021-04-01] VITALS (10 sets, daily range): BP systolic 104–148; BP diastolic 59–83; PULSE 58–73; RESP 16; TEMP 36.1–36.5; O2SAT 92–99; BMI 35.6
[2021-04-01] MEDS: Lactated Ringers 1,000 ML 15 ML IV (07:31)
[2021-04-01] MEDS: Lidocaine 1% (20 ml mdv) 20 ML Vial (09:33)
--- NOTE | 2021-04-01 09:50 | HP.PCM_ITS ---
HPI - General HPI Narrative KAYLA WILKERSON, is a 70 F who presents for removal of interstim device, the interstim was placed by another physician, she does not want to try to see if we can get it to work and wants to have it removed, also if planning to have an MRI since the device is not MRI compatible. [facility]LY [facility] Medical History (Updated 03/25/21 @ 11:23 by Yady Acosta) Angioma Cancer Carpal tunnel syndrome Depression Emotional depression Fibromyalgia Former smoker Frequent headaches GERD (gastroesophageal reflux disease) History of steroid therapy Injury of head and neck ED (obstructive sleep apnea) Restless leg syndrome Sleep apnea Wears glasses Home Medications anastrozole 1 mg tablet 1 mg PO DAILY 11/07/18 [History Last Taken 01/05/19] venlafaxine 150 mg capsule,extended release 24 hr 150 mg PO DAILY 11/07/18 [Hi story Last Taken 01/05/19] venlafaxine 75 mg capsule,extended release 24 hr 75 mg PO DAILY 11/07/18 [History Last Taken 01/05/19] zolpidem 10 mg PO QHS 04/01/19 [History Last Taken Unknown] pramipexole 1.5 mg tablet 1.5 mg PO BID tab 09/09/20 [History Last Taken Unknown] cholecalciferol (vitamin D3) [Vitamin D3] 125 mcg PO DAILY 03/25/21 [History Last Taken Unknown] cephalexin 500 mg PO BID #10 cap 04/01/21 [Rx Last Taken Unknown] Allergy/AdvReac Type Severity Reaction Status Date / Time No Known Allergies Allergy Verified 04/01/21 07:25 Family History Unknown No problems noted. Surgical History (Updated 03/25/21 @ 11:23 by Yady Acosta) EXCISION PELVIC LEIOMYOSARCOMA History of hysterectomy History of surgical procedure on mouth Hx of laparoscopic gastric banding IMPLANTATION OF INTERSTIM Social History Smoking Status: Former smoker how long ago did patient quit smokin YEARS alcohol intake: never substance use type: does not use additional social history: DOES NOT USE ASPIRIN DOES NOT USE IBUPROFEN Vital Signs Vital Signs Vital Signs: 04/01/21 07:27 Temperature 97.7 F L Temperature Source Temporal Pulse Rate 67 Respiratory Rate 16 Respiratory Pattern Normal Blood Pressure 148/83 H Blood Pressure Mean 104 Blood Pressure Source Monitor Blood Pressure Position Semi-Fowlers Blood Pressure Location Right Arm Pulse Ox 98 Oxygen Delivery Method Room Air Weight Weight: 97.3 kg Body Mass Index (BMI) 35.6
--- NOTE | 2021-04-01 09:52 | PCM.DC ---
Discharge Instructions Diet Discharge Diet: No restrictions Activity Discharge Activity: Return to Normal Activity and May Not Drive (while taking narcotic pain medications.) Dressing / Incision Call your doctor if you observe: Fever of 101 or Higher Follow Up Care Please Follow Up With: Mauro Dalton MD When: Call [phone] for an appointment Test Results: Test results from this visit will be discussed in further detail at your follow-up appointment, if applicable. Discharge Plan Admission Primary Reason for Your Visit: removal of intersim device Attending Provider: Mauro Dalton Primary Care Provider: Douglas Willson Discharge Orders/Prescriptions Prescriptions: New cephalexin 500 mg capsule 500 mg PO BID Qty: 10 RF: 0 Continued venlafaxine 150 mg capsule,extended release 24hr 150 mg PO DAILY RF: 0 venlafaxine 75 mg capsule,extended release 24hr 75 mg PO DAILY RF: 0 anastrozole [Arimidex] 1 mg tablet 1 mg PO DAILY RF: 0 pramipexole [Mirapex] 1.5 mg tablet 1.5 mg PO BID RF: 0 zolpidem 10 MG tablet 10 mg PO QHS RF: 0 cholecalciferol (vitamin D3) [Vitamin D3] 125 mcg (5,000 unit) Tablet 125 mcg PO DAILY RF: 0 Referrals / Follow Up: Mauro Dalton MD [STAFF PHYSICIAN] - Douglas Willson MD [Primary Care Provider] - Disposition Disposition (needs filled in before D/C Order can be placed): Home, Self Care
--- NOTE | 2021-04-01 09:52 | PCM.OPRPT ---
Report of Operation Date of Procedure: 04/01/21 Pre-Operative Diagnosis: Urge incontinence with nonworking InterStim device Post-Operative Diagnosis: Same Surgery/Procedure Performed:: Removal of InterStim device stage I and II Description of Surgical Findings:: Patient has elected to have her InterStim therapy device removed this was placed by another physician a few years ago this point the device is not working she does not want to see if we can do a revision she wants to have the device removed she also plans to have an MRI of the back and because the device is currently not MRI compatible she is not able to have MRI but after the device is removed she plans to have appropriate MRI imaging. So because of this we will proceed with removal of InterStim device since is not working and she desires to have an MRI of the back Patient was taken back to the operating room she was placed on the table facedown we then prepped the lower back and draped in the usual sterile fashion I could see the incision line where the InterStim device was implanted and made an incision in the skin infiltrated the skin with lidocaine and then dissected right on top of the device the device was then extracted from the wound site and then the end of the lead cord was was pulled the tug to see where it implant site was I then made an incision over the implant site and then put a Sherice underneath the device and the lead cord and then once again came to come loose cord clamp was placed on this and then the device lead implant was then cut and then the generator and the lead cord was removed I then infiltrated the sacrum and the skin more and then using a hemostat I reviewed released the tined lead that was going to the S3 foramen and this was removed all intact without any residual fragments in the entire thing was removed. Once it was removed and we use electrocautery to obtain hemostasis in the incisions closed both incisions with subcuticular stitches and dressings and Steri-Strips were placed patient anesthetic was reversed taken back to PACU good condition to follow-up in a few weeks for postop check. Surgeon: bob Type of Anesthesia: General Drains: none Admit VTE Documentation VTE Present on Admission: No VTE Mechan Device Prophylaxis: SCD's VTE Pharm Prophylaxis ordered?: No
[2021-04-01] MEDS: Acetaminophen 325 MG Tablet 650 MG PO (10:44)
[2021-04-01] MEDS: oxyCODONE 5 MG Tablet PO (10:44)
== END 2021-04-01 11:21 | disposition home or self-care (01) ==
LOC: SDC 06:54 → AC 06:55
PROVIDERS: PCP Family Medicine; Referring Provider Urology; Visit Provider Urology
PROC: (CPT 64585; principal; 2021-04-01 08:50)
DX: Z45.42 Encounter for adjustment and management of neurostimulator (principal); N39.41 Urge incontinence; F32.A Depression, unspecified; G25.81 Restless legs syndrome; G47.33 Obstructive sleep apnea (adult) (pediatric); G56.00 Carpal tunnel syndrome, unspecified upper limb; K21.9 Gastro-esophageal reflux disease without esophagitis; M79.7 Fibromyalgia; Z79.899 Other long term (current) drug therapy; Z87.891 Personal history of nicotine dependence
CPT/HCPCS: 64585; J7120; J2405

== ENCOUNTER → 2021-04-02 10:18 | Outpatient (CLI) | payer MEDICARE, SELFPAY ==
--- NOTE | 2021-04-02 10:31 | MRI_ITS ---
EXAM: MR LEFT LOWER EXTREMITY WITHOUT INTRAVENOUS CONTRAST, HIP CLINICAL INDICATION: S/P FALL Technologist Notes fall 09/2019, pain left SI area into hip TECHNIQUE: Multiplanar and multisequence MR images of the left hip without intravenous contrast. This report was created using Vizibility report generation technology. COMPARISON: 11.09.19 xr FINDINGS: TENDONS: FLEXORS: Unremarkable. Intact. EXTENSORS/HAMSTRING: Unremarkable. Intact. ABDUCTORS: Unremarkable. Intact. ADDUCTORS: Unremarkable. Intact. ROTATORS: Unremarkable. Intact. MUSCLES: Increased STIR signal involving the muscles of the left lateral hip. This suggests an inflammatory process or posttraumatic intramuscular strain. FLUID: Unremarkable. No joint effusion. No trochanteric bursitis. LABRUM: Unremarkable. No evidence of a tear on this non-arthrogram exam. CARTILAGE: Unremarkable. Articular cartilage intact. BONES/JOINTS: Degenerative findings of the lumbar spine. OTHER SOFT TISSUES: Unremarkable. MRI/Lower Ext Joint Only (Routine) IMPRESSION: Increased STIR signal involving the muscles of the left lateral hip. This suggests an inflammatory process or posttraumatic intramuscular strain. Electronically Signed: Chris Lizama MD at 14:40 EST , Service support ,
== END ==
PROVIDERS: PCP Family Medicine; Referring Provider Anesthesiology Pain Medicine; Visit Provider Anesthesiology Pain Medicine
DX: M53.3 Sacrococcygeal disorders, not elsewhere classified (principal); W19.XXXA Unspecified fall, initial encounter
CPT/HCPCS: 73721

== ENCOUNTER → 2021-04-03 08:08 | Outpatient (CLI) | payer MEDICARE, SELFPAY ==
--- NOTE | 2021-04-03 08:10 | BI_ITS ---
MAMMOGRAPHY - BILATERAL SCREENING 3-D TOMOSYNTHESIS REASON FOR EXAM: Female, 70 years old. SCREENING PERTINENT HISTORY: No significant family history. TECHNIQUE: 2-D mammograms and 3-D Tomosynthesis of the breast (s) were performed. CAD was performed. COMPARISON: 04/02/2020 FINDINGS: The breast composition is composed of scattered fibroglandular density. Scattered benign calcifications are seen. No dense spiculated masses or suspicious microcalcifications are identified. No architectural distortion is identified. There is no skin thickening or retraction. There has been no significant change since the prior study. BI/SCRN MAMM (CAD)W/GREGORY BILAT IMPRESSION: No mammographic signs of malignancy. Routine yearly mammograms recommended. ASSESSMENT CATEGORY: BIRADS Category 1: Negative. A letter regarding these results will be sent to the patient by the facility within 30 days. FOLLOW UP RECOMMENDATION: Yearly follow up mammogram recommended. (A) Approximately 10% of breast cancers are not detected by mammography. A normal mammogram should not delay biopsy of a clinically suspicious abnormality. Electronically Signed: Jordy Le MD at 9:34 EST Tel , Service support ,
== END ==
PROVIDERS: PCP Family Medicine; Referring Provider Family Medicine; Visit Provider Family Medicine
DX: Z12.31 Encounter for screening mammogram for malignant neoplasm of breast (principal)
CPT/HCPCS: 77063; 77067

== ENCOUNTER 2021-08-20 14:08 | Inpatient (IN) | payer MEDICARE, SELFPAY ==
[2021-08-20 14:25] VITALS: BMI 33.8
[2021-08-20 16:00] VITALS: BP 153/87; PULSE 75; RESP 16; TEMP 37.1; O2SAT 96
[2021-08-20] MEDS: Acetaminophen 325 MG Tablet PO (16:39)
--- NOTE | 2021-08-20 19:37 | HP.PCM_ITS ---
[facility] - General General Date of Admission: 08/20/21 HPI Narrative KAYLA WILKERSON, is a 71 Female who presents with following: Resident fell down a flight of stairs 2 years ago, Since this fall, she has had left hip problems. She is ambulating with a limp, and states she occasionally uses a cane. Her left hip pain and lateral left buttocks pain is constant aching at 5/10. She has intermittent sharp pain at 8/10. Her pain is aggravated by laying on left side, standing from seated position, stairs, prolonged walking, inclines. She states she does not have the ability to walk for long. She denies left leg weakness, left hip locking. For relief, she has tried PT, PO medications, steroid injections, ice. Resident has worked with Dr. Ambrocio for pain relief. Cervical epidural steroid injections helpful for neck pain, but left hip pain persisted. She also has right knee pain from compensating for left hip pain. She saw Dr. Mccormack and surgery was recommended. 08/18/2021 Dr. Mccormack performed left hip scope with gluteus medius and minimus repair, rotium augmentation, allograft augmentation (24 x 24 x 2.1mm thickness), trochanteric bursectomy and iliotibial band resection. 08/20/2021 Admit to TCU with debility, here for rehabilitation, strengthening, prior to discharge home with . [facility] Medical History (Updated 08/20/21 @ 19:[address] Zia Blackmon MD) Angioma Cancer Carpal tunnel syndrome Depression Emotional depression Fibromyalgia Former smoker Frequent headaches GERD (gastroesophageal reflux disease) History of steroid therapy Injury of head and neck ED (obstructive sleep apnea) Restless leg syndrome Sleep apnea Wears glasses Home Medications anastrozole 1 mg tablet 1 mg PO DAILY 11/07/18 [History Last Taken 01/05/19] venlafaxine 150 mg capsule,extended release 24 hr 150 mg PO DAILY 11/07/18 [History Last Taken 01/05/19] venlafaxine 75 mg capsule,extended release 24 hr 75 mg PO DAILY 11/07/18 [History Last Taken 01/05/19] zolpidem 10 mg PO QHS 04/01/19 [History Last Taken Unknown] pramipexole 1.5 mg tablet 1.5 mg PO QHS tab 09/09/20 [History Last Taken Unknown] cholecalciferol (vitamin D3) [Vitamin D3] 125 mcg PO DAILY 03/25/21 [History Last Taken Unknown] cephalexin 500 mg PO BID #10 cap 04/01/21 [Rx Last Taken Unknown] enoxaparin 40 mg SUBCUT DAILY 08/20/21 [History Last Taken 08/20/21 09:00] ondansetron HCl [Zofran] 4 mg PO Q8H PRN 08/20/21 [History Last Taken Unknown] oxycodone-acetaminophen [Percocet] 1 tab PO Q6H PRN 08/20/21 [History Last Taken Unknown] Allergy/AdvReac Type Severity Reaction Status Date / Time No Known Allergies Allergy Verified 04/01/21 07:25 Family History Unknown No problems noted. Surgical History (Updated 08/20/21 @ 19:[address] Zia Blackmon MD) EXCISION PELVIC LEIOMYOSARCOMA H/O gastric sleeve History of hysterectomy History of surgical procedure on mouth Hx of laparoscopic gastric banding IMPLANTATION OF INTERSTIM Social History (Updated 08/20/21 @ 19:[address] Zia Blackmon MD) household members: spouse Smoking Status: Former smoker how long ago did patient quit smokin YEARS alcohol intake: never substance use type: does not use additional social history: DOES NOT USE ASPIRIN DOES NOT USE IBUPROFEN ROS Constitutional Constitutional: Denies chills, fever(s) or weight gain ENT HEENT: Denies headache(s), nasal congestion or nasal discharge Cardiovascular Cardiovascular: Denies chest pain or palpitations Respiratory/Chest Respiratory/Chest: Denies cough, excessive phlegm production or shortness of breath with exertion Gastrointestinal Gastrointestinal: Denies abdominal pain, nausea or vomiting Genitourinary Genitourinary: Denies dysuria Musculoskeletal Musculoskeletal: Denies joint pain or joint swelling Integumentary Integumentary: Denies rash or wounds Neurologic Neurologic: Denies focal weakness, numbness or tingling Psychiatric Psychiatric: Denies anxiety, auditory hallucinations, depression, homicidal ideation or suicidal ideation Vital Signs Vital Signs Vital Signs: 08/20/21 16:00 Temperature 98.8 F Temperature Source Temporal Pulse Rate 75 Respiratory Rate 16 Blood Pressure 153/87 H Blood Pressure Mean 109 Blood Pressure Source Monitor Blood Pressure Position Semi-Fowlers Blood Pressure Location Left Arm Pulse Ox 96 Oxygen Delivery Method Room Air Physical Exam Const alert General Appearance: cooperative HEENT normocephalic Eyes PERRL and EOMs intact bilaterally Neck supple, no JVD and no carotid bruits Resp normal respiratory effort, normal air movement and clear to auscultation bilaterally Cardio regular rate and regular rhythm GI normal to inspection, nondistended, normoactive bowel sounds, non-tender and non-distended Extremity normal capillary refill General Extremity: Negative for edema Skin no rashes or lesions noted General Skin Exam: no breakdown Psych affect normal Appearance: appropriate Assessment & Plan Assessment/Plan (1) Debility: (2) Gluteal tendinitis, left hip: (3) Trochanteric bursitis, left hip: (4) Iliotibial band syndrome: (5) Depression: (6) Gastroesophageal reflux disease: (7) Cervical disc disease: (8) Irritable bowel syndrome: (9) Leiomyosarcoma: (10) Obstructive sleep apnea: (11) Restless leg syndrome: (12) Urinary incontinence: PLAN: 71 year old female with below past medical history underwent left hip scope with gluteus medius and minimus repair, rotium augmentation, allograft augmentation (24 x 24 x 2.1mm thickness), trochanteric bursectomy and iliotibial band resection 08/18/[address] Mccormack, admitted to TCU with debility, here for rehabilitation, strengthening, prior to discharge home with . * Debility - PT/OT. * Pain - Tylenol 1000mg q6h prn pain (1-3), Oxycodone 5mg q4h prn pain (4-10). * Bowel - senna/colace 2 tablets bid, Dulcolax 10mg daily prn. * Adult immunization - Administer pneumonia vaccine, covid19 vaccine, flu vaccine, as appropriate. * DVT prophylaxis - Lovenox 40mg sc daily. 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 * Nausea - Zofran odt 4mg q8h prn. * Restless leg syndrome - Mirapex 1.5mg qhs, 1mg daily prn. 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
[2021-08-20] MEDS: Senna/Docusate Sodium 1 Tablet 2 TABLET PO (21:29)
[2021-08-20] MEDS: Zolpidem Tartrate 5 MG Tablet 10 MG PO (21:30)
[2021-08-20] MEDS: oxyCODONE 5 MG Tablet PO (21:30)
[2021-08-20] MEDS: PRAMIPEXOLE DI HCL 1.5 MG PO (21:32)
[2021-08-20 21:35] VITALS: PULSE 72; RESP 16; O2SAT 96
--- NOTE | 2021-08-21 01:59 | NURSING ---
Two home medication bottles noted in patient personal belonging bag, patient educated that all home medications to be locked-up by nurse until patient advertising representative can retrieve from nurse to take home, second nurse present, 1 bottle senna and 1 bottle zolpidem (28 tablets counted by this nurse and KALIN Sumner) locked in medication room. Patient agreeable. Pt. denies taking any home medication from bottles stating forgot they were there and only took what the nurse gave me tonight. A&Ox3. Able to voice needs. Responds appropriately. Denies requests. Call light in reach.
[2021-08-21 05:46] LABS: Absolute Lymphocyte Count 1.36 X10^3/uL (0.83-4.51); Absolute Neutrophil Count 7.4 X10^3/uL (2.0-7.7); Basophil# 0.03 X10^3/uL; Basophil% 0.3 % (0-1); Eosinophil# 0.17 X10^3/uL; Eosinophils% 1.8 % (0-5); Hematocrit 36.3 % (37-47); Hemoglobin 11.7 g/dL (12.0-15.0); Lymphocyte # 1.36 X10^3/ul (0.83-4.51); Lymphocyte % 14.1 % (19-41); Mean Corp Hgb Conc 32.2 g/dL (32-36); Mean Corpuscular Hgb 27.5 pg (27.0-32.0); Mean Corpuscular Volume 85.2 fL (81-99); Monocyte# 0.64 X10^3/uL; Monocyte% 6.6 % (0-10); NRBC Flagged by Analyzer 0 % (0-5); Neutrophil # 7.42 X10^3/uL (2.7-7.7); Neutrophil % 76.9 % (47-70); Platelet Count 188 K/mm3 (150-450); RBC Distribution Width CV 13.2 % (11.6-14.6); RBC Distribution Width SD 41.2 fl (35.1-43.9); Red Blood Count 4.26 M/mm3 (4.2-5.4); White Blood Count 9.7 K/mm3 (4.4-11.0)
[2021-08-21] MEDS: Enoxaparin 40 MG/0.4 ML Syringe SC (06:09)
[2021-08-21] MEDS: Senna/Docusate Sodium 1 Tablet 2 TABLET PO ×2 (06:09→16:30)
[2021-08-21] MEDS: Anastrozole 1 MG TABLET PO (06:09)
[2021-08-21] MEDS: Venlafaxine XR 75 MG Capsule PO (06:10)
[2021-08-21] MEDS: Venlafaxine XR 150 MG Capsule PO (06:10)
[2021-08-21] MEDS: oxyCODONE 5 MG Tablet PO ×3 (06:16→16:32)
[2021-08-21 06:20] LABS: Anion Gap 9 (5-15); BUN 12 mg/dL (7-18); Calcium,Total 8.9 mg/dL (8.5-10.1); Chloride 106 mmol/L (98-107); EST Glomerular Filtration Rate 88 mL/min (>60); Est Glom Filt Rate - Afr Amer 106 mL/min (>60); Estimated Creatinine Clearance 51.63 ml/min; Glucose 102 mg/dL (74-106); Potassium 3.6 mmol/L (3.5-5.1); Sodium Level 140 mmol/L (136-145)
[2021-08-21] MEDS: Tuberculin,Purif.prot.deriv. 50 TU/ML Vial 0.1 ML ID (10:16)
--- NOTE | 2021-08-21 10:34 | CASEMGMT ---
Social Work Met with patient to complete initial assessment. Introduced self and role. Pt wishes to have as primary contact. Discussed code status and MOLST form. Pt confirms full code. MOLST communicated to Dr and placed in chart. Explained [facility] insurance with [employer] 08/26 and continued stay is not guaranteed with each review. The goal is for pt to return home at PLOF. Barriers are steps to enter, steps to 2nd flr bed and full bath, 1st flr half-bath is very small and pt cannot get walker in, per pt. will need therapy training to properly assist at home. SW to continue to follow for DC planning. Genoveva Chapman ,K9 HANDLER GAME DESIGN INSTRUCTOR
[2021-08-21 15:27] VITALS: BP 146/68; PULSE 55; RESP 14; TEMP 37.1; O2SAT 94
[2021-08-21] MEDS: Pramipexole Di-HCl 1 MG Tablet PO (16:30)
[2021-08-21] MEDS: Zolpidem Tartrate 5 MG Tablet 10 MG PO (21:56)
[2021-08-21] MEDS: Acetaminophen 500 MG Tablet 1000 MG PO (21:59)
[2021-08-21] MEDS: PRAMIPEXOLE DI HCL 1.5 MG PO (21:59)
[2021-08-22] MEDS: Anastrozole 1 MG TABLET PO (05:02)
[2021-08-22] MEDS: Venlafaxine XR 75 MG Capsule PO (05:02)
[2021-08-22] MEDS: Enoxaparin 40 MG/0.4 ML Syringe SC (05:02)
[2021-08-22] MEDS: Acetaminophen 500 MG Tablet 1000 MG PO ×3 (05:02→21:44)
[2021-08-22] MEDS: Venlafaxine XR 150 MG Capsule PO (05:02)
[2021-08-22] MEDS: Senna/Docusate Sodium 1 Tablet 2 TABLET PO (05:03)
[2021-08-22] MEDS: oxyCODONE 5 MG Tablet PO (08:54)
--- NOTE | 2021-08-22 13:55 | PHA.CONS1_ITS ---
Progress Note - Pharmacy Subjective: TCU ADMISSION Objective: Allergies No Known Allergies Allergy (Verified 04/01/21 07:25) Current Medications Generic Name Dose Route Start Last Admin Trade Name Freq PRN Reason Stop Dose Admin Acetaminophen 1,000 mg 08/21/21 22:00 08/22/21 05:02 Acetaminophen 500 Mg Tablet PO 1,000 mg TID CECELIA Administration Anastrozole 1 mg 08/21/21 06:00 08/22/21 05:02 Anastrozole 1 Mg Tablet PO 1 mg DAILY CECELIA Administration Bisacodyl 10 mg 08/20/21 20:00 Bisacodyl 5 Mg Tablet PO DAILY PRN Constipation Enoxaparin Sodium 40 mg 08/21/21 06:00 08/22/21 05:02 Enoxaparin 40 Mg/0.4 Ml Syringe SC 40 mg DAILY CECELIA Administration Nystatin 500,000 unit 08/22/21 17:00 Nystatin 500,000 Unit/5 Ml Udc PO 09/01/21 17:01 4X/DAY [facility] Ondansetron HCl 4 mg 08/20/21 19:54 Ondansetron Odt 4 Mg Tablet PO Q8H PRN PRN NAUSEA/VOMITING Oxycodone HCl 5 mg 08/20/21 20:00 08/22/21 08:54 Oxycodone 5 Mg Tablet PO 5 mg Q4H PRN PRN Administration Pain Score 4-10 Pramipexole Dihydrochloride 1 mg 08/20/21 14:49 08/21/21 16:30 Pramipexole Di-Hcl 1 Mg Tablet PO 1 mg DAILY PRN PRN Administration Restless leg syndrome Pramipexole Dihydrochloride 1 1.5 mg 08/20/21 22:00 08/21/21 21:59 mg/ Pramipexole PO 1.5 mg Dihydrochloride 0.5 mg QHS CECELIA Administration Senna/Docusate Sodium 2 tablet 08/20/21 20:00 08/22/21 05:03 Senna/Docusate Sodium 1 Tablet PO 2 tablet BID CECELIA Administration Sodium Chloride 10 - 40 ml 08/20/21 16:10 0.9% Saline Lock 10 Ml Syringe IV UD PRN SALINE FLUSH Tuberculin PPD 0.1 ml 08/28/21 10:00 Tuberculin,Purif.Prot.Deriv. 50 Tu/Ml Vial ID 08/28/21 10:01 X1 ONE Venlafaxine HCl 75 mg 08/21/21 06:00 08/22/21 05:02 Venlafaxine Xr 75 Mg Capsule PO 75 mg DAILY CECELIA Administration Venlafaxine HCl 150 mg 08/21/21 06:00 08/22/21 05:02 Venlafaxine Xr 150 Mg Capsule PO 150 mg DAILY CECELIA Administration Zolpidem Tartrate 10 mg 08/20/21 22:00 08/21/21 21:56 Zolpidem Tartrate 5 Mg Tablet PO 10 mg QHS CECELIA Administration Problem List (Last Reviewed 08/20/21 @ 19:[address] Zia Blackmon MD) Urinary incontinence (Acute) Restless leg syndrome (Acute) Obstructive sleep apnea (Acute) Leiomyosarcoma (Acute) Irritable bowel syndrome (Acute) Cervical disc disease (Acute) Gastroesophageal reflux disease (Acute) Depression (Acute) Iliotibial band syndrome (Acute) Trochanteric bursitis, left hip (Acute) Gluteal tendinitis, left hip (Acute) Debility (Acute) Vital Signs Temp Pulse Resp BP Pulse Ox 98.7 F 55 L 14 146/68 H 94 08/21/21 15:27 08/21/21 15:27 08/21/21 15:27 08/21/21 15:27 08/21/21 15:27 Oxygen Delivery Method Room Air Weight: 97.976 kg Body Mass Index (BMI) 33.8 Sodium 140 mmol/L (136-145) 08/21/21 05:10 Potassium 3.6 mmol/L (3.5-5.1) 08/21/21 05:10 Chloride 106 mmol/L (98-107) 08/21/21 05:10 Carbon Dioxide 25.0 mmol/L (21.0-32.0) 08/21/21 05:10 Anion Gap 9 (5-15) 08/21/21 05:10 BUN 12 mg/dL (7-18) 08/21/21 05:10 Creatinine 0.70 mg/dL (0.55-1.02) 08/21/21 05:10 Est GFR (MDRD) Af Amer 106 mL/min (>60) 08/21/21 05:10 Est GFR (MDRD) Non-Af 88 mL/min (>60) 08/21/21 05:10 BUN/Creatinine Ratio 17.0 RATIO (10-20) 08/21/21 05:10 Glucose 102 mg/dL (74-106) 08/21/21 05:10 Assessment/Plan: 1. Pain: Tylenol 1000mg PO TID, Oxycodone 5mg PO Q4h PRN Pain 4-10. Please continue to monitor for increased/decreased S/S pain, oversedation with narcotic use. The patient has rated pain between 6-8 premedication and 5-6 post- medication. Please continue to monitor closely for fluctuation in pain/ worsening pain. - The patient has utilized 5 doses of oxycodone since 08/20/21. 2. Leiomyosarcoma: Anastrozole 1mg PO Daily. Please continue to monitor for headache, BP. Please follow up with oncology services as clinically indicated. 3. Restless Leg Syndrome: Mirapex 1.5mg PO QHS, 1mg PO Daily PRN. Please continue to monitor for drowsiness, dizziness, insomnia, PRN medication usage. 4. Nausea: Zofran 4mg PO Q8h PRN. Please continue to monitor for resolution of symptoms, PRN medication usage. 5. Thrush: Nystatin 500,000 unit PO 4x/day thru 09/01/21. Please continue to monitor for resolution of thrush symptoms, nausea, vomiting, diarrhea. 6. DVT prophylaxis: Lovenox 40mg SC Daily. Please continue to monitor for S/s bleeding/bruising, H/H, CrCl (last 51 mL/min). 7. Bowel: Senna/Docusate 2 tab PO BID, Dulcolax 10mg PO Daily PRN. Please continue to monitor for increased/decreased constipation and/or diarrhea. The patient has not had any documented bowel movement to date per EMR. Please continue to monitor given pt is actively using narcotic medications for pain, thank you. Psychotropic Medications: 8. Depression: Effexor XR 225mg PO Daily. Please see note in H/P regarding GDR recommendation, thank you. 9. Insomnia: Ambien 10mg PO QHS. Please see note in H/P regarding GDR recommendation, thank you. Medication Irregularities 1. GERD: According to patient's past medical history, the patient has a history of GERD. At present, the patient is not being maintained on any medications to control GERD. Please evaluate patient to see if diagnosis is managed with non- pharmacologic treatments or if the patient would be an appropriate candidate for medication, thank you. Date of Note:: 08/22/21
--- NOTE | 2021-08-22 15:24 | NURSING ---
White patches noted to tongue today, Dr. Blackmon updated, N.O. nystatin swish and swallow
[2021-08-22 16:00] VITALS: BP 146/87; PULSE 73; RESP 14; TEMP 36.4; O2SAT 95
[2021-08-22] MEDS: NYSTATIN 500,000 UNIT/5 ML UDC 500000 UNIT PO ×2 (16:00→21:45)
--- NOTE | 2021-08-22 17:51 | NURSING ---
Pt and family notified of staff member and another pt testing positive for covid.
[2021-08-22] MEDS: Zolpidem Tartrate 5 MG Tablet 10 MG PO (21:45)
[2021-08-22] MEDS: PRAMIPEXOLE DI HCL 1.5 MG PO (21:45)
[2021-08-22 22:00] VITALS: RESP 16
[2021-08-23 06:59] VITALS: PULSE 71; RESP 16; TEMP 36.2; O2SAT 97
[2021-08-23] MEDS: Anastrozole 1 MG TABLET PO (07:05)
[2021-08-23] MEDS: NYSTATIN 500,000 UNIT/5 ML UDC 500000 UNIT PO ×4 (07:05→22:43)
[2021-08-23] MEDS: Venlafaxine XR 150 MG Capsule PO (07:05)
[2021-08-23] MEDS: Acetaminophen 500 MG Tablet 1000 MG PO ×3 (07:05→22:42)
[2021-08-23] MEDS: Enoxaparin 40 MG/0.4 ML Syringe SC (07:06)
[2021-08-23] MEDS: Venlafaxine XR 75 MG Capsule PO (07:10)
[2021-08-23 09:15] VITALS: PULSE 72; RESP 18; O2SAT 93
[2021-08-23] MEDS: oxyCODONE 5 MG Tablet PO ×2 (09:16→20:04)
[2021-08-23 16:00] VITALS: BP 160/93; PULSE 64; RESP 16; TEMP 36.5; O2SAT 98
[2021-08-23 18:43] VITALS: BP 146/75; PULSE 76
[2021-08-23] MEDS: Zolpidem Tartrate 5 MG Tablet 10 MG PO (22:40)
[2021-08-23] MEDS: PRAMIPEXOLE DI HCL 1.5 MG PO (22:41)
[2021-08-24] MEDS: Senna/Docusate Sodium 1 Tablet 2 TABLET PO (06:18)
[2021-08-24] MEDS: Anastrozole 1 MG TABLET PO (06:18)
[2021-08-24] MEDS: Venlafaxine XR 75 MG Capsule PO (06:18)
[2021-08-24] MEDS: Venlafaxine XR 150 MG Capsule PO (06:18)
[2021-08-24] MEDS: Acetaminophen 500 MG Tablet 1000 MG PO ×3 (06:18→22:50)
[2021-08-24] MEDS: NYSTATIN 500,000 UNIT/5 ML UDC 500000 UNIT PO ×4 (06:18→22:49)
[2021-08-24] MEDS: Enoxaparin 40 MG/0.4 ML Syringe SC (06:21)
[2021-08-24 06:36] VITALS: BP 142/69; PULSE 64; RESP 17; TEMP 36.3; O2SAT 97
[2021-08-24] MEDS: oxyCODONE 5 MG Tablet PO ×2 (08:44→22:52)
[2021-08-24 14:54] VITALS: BP 150/77; PULSE 64; RESP 18; TEMP 35.6; O2SAT 96
[2021-08-24 22:00] VITALS: PULSE 69
[2021-08-24] MEDS: PRAMIPEXOLE DI HCL 1.5 MG PO (22:50)
[2021-08-24] MEDS: Zolpidem Tartrate 5 MG Tablet 10 MG PO (22:50)
[2021-08-25] MEDS: oxyCODONE 5 MG Tablet PO ×3 (05:11→15:20)
[2021-08-25] MEDS: Venlafaxine XR 150 MG Capsule PO (05:12)
[2021-08-25] MEDS: Anastrozole 1 MG TABLET PO (05:12)
[2021-08-25] MEDS: Acetaminophen 500 MG Tablet 1000 MG PO ×3 (05:12→20:48)
[2021-08-25] MEDS: NYSTATIN 500,000 UNIT/5 ML UDC 500000 UNIT PO ×4 (05:12→20:47)
[2021-08-25] MEDS: Venlafaxine XR 75 MG Capsule PO (05:12)
[2021-08-25] MEDS: Enoxaparin 40 MG/0.4 ML Syringe SC (05:12)
[2021-08-25 15:21] VITALS: BP 145/71; PULSE 70; RESP 12; TEMP 36.7; O2SAT 96
[2021-08-25] MEDS: Senna/Docusate Sodium 1 Tablet 2 TABLET PO (17:37)
[2021-08-25] MEDS: PRAMIPEXOLE DI HCL 1.5 MG PO (20:46)
[2021-08-25] MEDS: Zolpidem Tartrate 5 MG Tablet 10 MG PO (22:15)
[2021-08-26] MEDS: Senna/Docusate Sodium 1 Tablet 2 TABLET PO (05:10)
[2021-08-26] MEDS: Anastrozole 1 MG TABLET PO (05:11)
[2021-08-26] MEDS: Venlafaxine XR 75 MG Capsule PO (05:12)
[2021-08-26] MEDS: Venlafaxine XR 150 MG Capsule PO (05:12)
[2021-08-26] MEDS: Enoxaparin 40 MG/0.4 ML Syringe SC (05:12)
[2021-08-26] MEDS: Acetaminophen 500 MG Tablet 1000 MG PO ×3 (05:15→21:52)
[2021-08-26] MEDS: NYSTATIN 500,000 UNIT/5 ML UDC 500000 UNIT PO ×4 (05:16→21:51)
[2021-08-26 16:00] VITALS: BP 160/88; PULSE 60; RESP 18; TEMP 36.6; O2SAT 97
[2021-08-26 21:20] VITALS: BP 167/67; PULSE 67; PULSE 69; RESP 16; TEMP 36.2; O2SAT 96
[2021-08-26] MEDS: Zolpidem Tartrate 5 MG Tablet 10 MG PO (21:51)
[2021-08-26] MEDS: PRAMIPEXOLE DI HCL 1.5 MG PO (21:52)
[2021-08-27 05:00] VITALS: BP 137/57; PULSE 60; RESP 17; TEMP 36.1; O2SAT 92
[2021-08-27] MEDS: Enoxaparin 40 MG/0.4 ML Syringe SC (06:40)
[2021-08-27] MEDS: NYSTATIN 500,000 UNIT/5 ML UDC 500000 UNIT PO ×4 (06:40→20:34)
[2021-08-27] MEDS: Acetaminophen 500 MG Tablet 1000 MG PO ×3 (06:41→20:34)
[2021-08-27] MEDS: Venlafaxine XR 150 MG Capsule PO (06:41)
[2021-08-27] MEDS: Venlafaxine XR 75 MG Capsule PO (06:41)
[2021-08-27] MEDS: Anastrozole 1 MG TABLET PO (06:42)
--- NOTE | 2021-08-27 09:59 | CASEMGMT ---
Social Work IDT met with patient and for care plan meeting. Discussed patient's progress in PT/OT and nursing. Pt making progress, however, still needs assistance. completed therapy training and will continue to do so. is installing ramp to enter home, but pt still has two steps to get to main level. Therapy working on strategies to complete those steps. At PR, SW to order [facility], hospital bed for pt to have main floor set up as pt's bed/bath on flr. Pt has f/u appt 08/29. Explained [facility] insurance with [employer] 08/26 and continued stay is not guaranteed. The goal is for pt to get as independent as possible prior to discharging home. SW to continue to follow. RAISA DillardW
--- NOTE | 2021-08-27 11:42 | NURSING ---
ICE PACK GIVEN TO PT FOR LEFT CHEST/SHOULDER DUE TO IT BEING PAINFUL FROM THERAPY AND USING WALKER. RN AWARE
[2021-08-27 12:50] VITALS: PULSE 74; RESP 18; O2SAT 92
[2021-08-27 15:06] VITALS: BP 149/84; PULSE 60; RESP 16; TEMP 36.4; O2SAT 95
[2021-08-27] MEDS: Senna/Docusate Sodium 1 Tablet 2 TABLET PO (17:04)
[2021-08-27] MEDS: PRAMIPEXOLE DI HCL 1.5 MG PO (20:34)
[2021-08-27] MEDS: oxyCODONE 5 MG Tablet PO (22:37)
[2021-08-27] MEDS: Zolpidem Tartrate 5 MG Tablet 10 MG PO (22:37)
[2021-08-28 05:57] LABS: Absolute Lymphocyte Count 1.98 X10^3/uL (0.83-4.51); Absolute Neutrophil Count 5.3 X10^3/uL (2.0-7.7); Basophil# 0.02 X10^3/uL; Basophil% 0.2 % (0-1); Eosinophil# 0.22 X10^3/uL; Eosinophils% 2.7 % (0-5); Hematocrit 35.9 % (37-47); Hemoglobin 11.4 g/dL (12.0-15.0); Lymphocyte # 1.98 X10^3/ul (0.83-4.51); Lymphocyte % 24.7 % (19-41); Mean Corp Hgb Conc 31.8 g/dL (32-36); Mean Corpuscular Hgb 27.2 pg (27.0-32.0); Mean Corpuscular Volume 85.7 fL (81-99); Mean Platelet Vol. 10.8 fl (6.2-12.0); Monocyte# 0.53 X10^3/uL; Monocyte% 6.6 % (0-10); NRBC Flagged by Analyzer 0 % (0-5); Neutrophil # 5.25 X10^3/uL (2.7-7.7); Neutrophil % 65.4 % (47-70); Platelet Count 238 K/mm3 (150-450); RBC Distribution Width CV 12.7 % (11.6-14.6); RBC Distribution Width SD 39.4 fl (35.1-43.9); Red Blood Count 4.19 M/mm3 (4.2-5.4)
[2021-08-28 06:25] LABS: Anion Gap 5 (5-15); BUN 13 mg/dL (7-18); BUN/Creat Ratio 18.4 RATIO (10-20); Calcium,Total 8.5 mg/dL (8.5-10.1); Chloride 106 mmol/L (98-107); Creatinine, Serum 0.71 mg/dL (0.55-1.02); EST Glomerular Filtration Rate 87 mL/min (>60); Est Glom Filt Rate - Afr Amer 105 mL/min (>60); Estimated Creatinine Clearance 51.63 ml/min; Glucose 105 mg/dL (74-106); Potassium 3.8 mmol/L (3.5-5.1); Sodium Level 139 mmol/L (136-145)
[2021-08-28] MEDS: Enoxaparin 40 MG/0.4 ML Syringe SC (06:41)
[2021-08-28] MEDS: oxyCODONE 5 MG Tablet PO ×3 (06:42→22:54)
[2021-08-28] MEDS: Venlafaxine XR 75 MG Capsule PO (06:42)
[2021-08-28] MEDS: Venlafaxine XR 150 MG Capsule PO (06:42)
[2021-08-28] MEDS: Acetaminophen 500 MG Tablet 1000 MG PO ×2 (06:42→20:59)
[2021-08-28] MEDS: Anastrozole 1 MG TABLET PO (06:43)
[2021-08-28] MEDS: NYSTATIN 500,000 UNIT/5 ML UDC 500000 UNIT PO ×4 (06:43→20:59)
[2021-08-28 06:48] VITALS: BP 149/78; PULSE 66; RESP 17; TEMP 35.9; O2SAT 94
[2021-08-28] MEDS: Tuberculin,Purif.prot.deriv. 50 TU/ML Vial 0.1 ML ID (10:50)
--- NOTE | 2021-08-28 11:40 | NURSING ---
Data Communications Software Consultant Note: Interview and Section F of MDS complete.
[2021-08-28 14:29] VITALS: BP 145/68; PULSE 82; RESP 20; TEMP 37.5; O2SAT 96
[2021-08-28 20:55] VITALS: PULSE 66; RESP 18; O2SAT 97
[2021-08-28] MEDS: PRAMIPEXOLE DI HCL 1.5 MG PO (21:00)
[2021-08-28] MEDS: Zolpidem Tartrate 5 MG Tablet 10 MG PO (22:53)
[2021-08-29 05:00] VITALS: BP 131/70; PULSE 65; RESP 16; TEMP 36.6
[2021-08-29] MEDS: Acetaminophen 500 MG Tablet 1000 MG PO ×3 (05:12→22:22)
[2021-08-29] MEDS: Enoxaparin 40 MG/0.4 ML Syringe SC (05:12)
[2021-08-29] MEDS: NYSTATIN 500,000 UNIT/5 ML UDC 500000 UNIT PO ×4 (05:12→22:21)
[2021-08-29] MEDS: Anastrozole 1 MG TABLET PO (05:13)
[2021-08-29] MEDS: Venlafaxine XR 75 MG Capsule PO (05:13)
[2021-08-29] MEDS: Venlafaxine XR 150 MG Capsule PO (05:13)
[2021-08-29 10:44] VITALS: RESP 20
--- NOTE | 2021-08-29 13:16 | NURSING ---
pt returned from appt
[2021-08-29] MEDS: oxyCODONE 5 MG Tablet PO ×2 (14:00→23:11)
[2021-08-29 14:33] VITALS: BP 107/74; PULSE 64; RESP 20; TEMP 36.6; O2SAT 98
--- NOTE | 2021-08-29 14:58 | CASEMGMT ---
Social Work Met with patient and after ortho appt. gave no new orders, including no change to WBS and f/u appt in 4 weeks. Cautioned pt at [facility] 09/02 for insurance, they may issue a DC date. Both understand. Pt requesting hospital bed, BSC, [facility] PT/OT. SW to order all needs once DC date is given. SW to continue to follow. Genoveva Chapman, CONTRACTS MANAGER DETASSELING CREW SUPERVISOR
[2021-08-29] MEDS: Senna/Docusate Sodium 1 Tablet 2 TABLET PO (17:03)
[2021-08-29] MEDS: PRAMIPEXOLE DI HCL 1.5 MG PO (22:21)
[2021-08-29] MEDS: Zolpidem Tartrate 5 MG Tablet 10 MG PO (23:11)
[2021-08-30 05:00] VITALS: BP 132/61; PULSE 67; RESP 18; TEMP 36.6; O2SAT 97
[2021-08-30] MEDS: Enoxaparin 40 MG/0.4 ML Syringe SC (06:49)
[2021-08-30] MEDS: NYSTATIN 500,000 UNIT/5 ML UDC 500000 UNIT PO ×4 (06:49→20:27)
[2021-08-30] MEDS: Acetaminophen 500 MG Tablet 1000 MG PO ×3 (06:49→20:25)
[2021-08-30] MEDS: Venlafaxine XR 75 MG Capsule PO (06:49)
[2021-08-30] MEDS: Venlafaxine XR 150 MG Capsule PO (06:49)
[2021-08-30] MEDS: Anastrozole 1 MG TABLET PO (06:49)
[2021-08-30 10:00] VITALS: RESP 16
[2021-08-30] MEDS: oxyCODONE 5 MG Tablet PO ×2 (10:56→23:11)
[2021-08-30 16:55] VITALS: BP 151/84; PULSE 65; RESP 16; TEMP 36.4; O2SAT 95
[2021-08-30] MEDS: PRAMIPEXOLE DI HCL 1.5 MG PO (20:26)
[2021-08-30] MEDS: Zolpidem Tartrate 5 MG Tablet 10 MG PO (23:09)
[2021-08-31] MEDS: oxyCODONE 5 MG Tablet PO ×2 (05:13→22:25)
[2021-08-31] MEDS: Acetaminophen 500 MG Tablet 1000 MG PO ×3 (05:14→20:19)
[2021-08-31] MEDS: Anastrozole 1 MG TABLET PO (05:15)
[2021-08-31] MEDS: Venlafaxine XR 75 MG Capsule PO (05:15)
[2021-08-31] MEDS: Enoxaparin 40 MG/0.4 ML Syringe SC (05:15)
[2021-08-31] MEDS: Venlafaxine XR 150 MG Capsule PO (05:15)
[2021-08-31] MEDS: NYSTATIN 500,000 UNIT/5 ML UDC 500000 UNIT PO ×4 (05:16→20:20)
[2021-08-31 14:00] VITALS: BP 156/87; PULSE 67; RESP 16; TEMP 36.3; O2SAT 97
[2021-08-31] MEDS: PRAMIPEXOLE DI HCL 1.5 MG PO (20:18)
[2021-08-31] MEDS: Zolpidem Tartrate 5 MG Tablet 10 MG PO (22:26)
[2021-09-01] MEDS: Enoxaparin 40 MG/0.4 ML Syringe SC (05:28)
[2021-09-01] MEDS: Venlafaxine XR 150 MG Capsule PO (05:28)
[2021-09-01] MEDS: NYSTATIN 500,000 UNIT/5 ML UDC 500000 UNIT PO ×3 (05:28→17:03)
[2021-09-01] MEDS: Acetaminophen 500 MG Tablet 1000 MG PO ×3 (05:28→22:32)
[2021-09-01] MEDS: Venlafaxine XR 75 MG Capsule PO (05:28)
[2021-09-01] MEDS: Anastrozole 1 MG TABLET PO (05:28)
[2021-09-01] MEDS: oxyCODONE 5 MG Tablet PO (09:50)
[2021-09-01 13:38] VITALS: BP 146/67; PULSE 70; RESP 15; TEMP 36.6; O2SAT 96
[2021-09-01] MEDS: Pramipexole Di-HCl 1 MG Tablet PO (17:02)
[2021-09-01] MEDS: PRAMIPEXOLE DI HCL 1.5 MG PO (22:33)
[2021-09-01] MEDS: Zolpidem Tartrate 5 MG Tablet 10 MG PO (22:35)
[2021-09-01 22:40] VITALS: PULSE 65; O2SAT 98
[2021-09-02] MEDS: Enoxaparin 40 MG/0.4 ML Syringe SC (05:34)
[2021-09-02] MEDS: Venlafaxine XR 150 MG Capsule PO (05:35)
[2021-09-02] MEDS: Acetaminophen 500 MG Tablet 1000 MG PO ×3 (05:35→19:49)
[2021-09-02] MEDS: Venlafaxine XR 75 MG Capsule PO (05:35)
[2021-09-02] MEDS: Anastrozole 1 MG TABLET PO (05:35)
[2021-09-02 10:42] VITALS: PULSE 71; RESP 20; TEMP 36.1; O2SAT 98
[2021-09-02] MEDS: oxyCODONE 5 MG Tablet PO (11:24)
--- NOTE | 2021-09-02 12:53 | MDS.RN ---
Information for the mds was obtained from review of the clinical record, interview of resident, staff, and direct observation of resident's care.
[2021-09-02 13:31] VITALS: BP 139/75
[2021-09-02] MEDS: PRAMIPEXOLE DI HCL 1.5 MG PO (19:47)
[2021-09-02] MEDS: Zolpidem Tartrate 5 MG Tablet 10 MG PO (23:06)
[2021-09-03 05:53] VITALS: BP 141/81; PULSE 61; RESP 16; TEMP 35.9; O2SAT 98
[2021-09-03] MEDS: Anastrozole 1 MG TABLET PO (05:58)
[2021-09-03] MEDS: Venlafaxine XR 75 MG Capsule PO (05:59)
[2021-09-03] MEDS: Enoxaparin 40 MG/0.4 ML Syringe SC (05:59)
[2021-09-03] MEDS: Venlafaxine XR 150 MG Capsule PO (05:59)
[2021-09-03] MEDS: Acetaminophen 500 MG Tablet 1000 MG PO ×3 (06:01→22:42)
--- NOTE | 2021-09-03 10:18 | CASEMGMT ---
Social Work Met with pt per request to DC home with 09/06. Pt requesting HHC - provided list of skilled HHC agencies with quality and resource data. Pt prefers [facility]. Referral made for PT/OT. Pt has f/u appt with 10/03 and he wants to clear for outpatient therapy. Pt requesting hospital bed and BSC. Referral made to [facility] [place] transport. Plan: DC home with 09/06, [facility] PT/OT, hospital bed, BSC Genoveva Chapman, MANAGER SQL REINSPECTOR
[2021-09-03] MEDS: oxyCODONE 5 MG Tablet PO (11:23)
[2021-09-03 12:24] VITALS: PULSE 79; RESP 20; TEMP 36.4; O2SAT 99
[2021-09-03 14:03] VITALS: BP 153/84
--- NOTE | 2021-09-03 19:41 | DS.PCM_ITS ---
Providers Date of Admission: 08/20/21 Primary Care Physician: Dr. Douglas Willson MD Reason For Visit: LEFT HIP ARTHOSCOPY Diagnosis Discharge Diagnosis (1) Debility: Status: Acute Code(s): R53.81 - Other malaise (2) Gluteal tendinitis, left hip: Status: Acute Code(s): M76.02 - Gluteal tendinitis, left hip (3) Trochanteric bursitis, left hip: Status: Acute Code(s): M70.62 - Trochanteric bursitis, left hip (4) Iliotibial band syndrome: Status: Acute Code(s): M76.30 - Iliotibial band syndrome, unspecified leg (5) Depression: Status: Acute Code(s): F32.A - Depression, unspecified (6) Gastroesophageal reflux disease: Status: Acute Code(s): K21.9 - Gastro-esophageal reflux disease without esophagitis (7) Cervical disc disease: Status: Acute Code(s): M50.90 - Cervical disc disorder, unspecified, unspecified cervical region (8) Irritable bowel syndrome: Status: Acute Code(s): K58.9 - Irritable bowel syndrome without diarrhea (9) Leiomyosarcoma: Status: Acute Code(s): C49.9 - Malignant neoplasm of connective and soft tissue, unspecified (10) Obstructive sleep apnea: Status: Acute Code(s): G47.33 - Obstructive sleep apnea (adult) (pediatric) (11) Restless leg syndrome: Status: Acute Code(s): G25.81 - Restless legs syndrome (12) Urinary incontinence: Status: Acute Code(s): R32 - Unspecified urinary incontinence Medications at Discharge Home Medications anastrozole 1 mg tablet 1 mg PO DAILY 11/07/18 venlafaxine 150 mg capsule,extended release 24 hr 150 mg PO DAILY 11/07/18 venlafaxine 75 mg capsule,extended release 24 hr 75 mg PO DAILY 11/07/18 zolpidem 10 mg PO QHS 04/01/19 cholecalciferol (vitamin D3) [Vitamin D3] 125 mcg PO DAILY 03/25/21 acetaminophen 1,000 mg PO TID #0 tab 09/03/21 oxycodone 5 mg PO Q4H PRN PRN 7 Days #42 tab 09/03/21 pramipexole 1 mg PO DAILY PRN PRN #0 tab 09/03/21 pramipexole 1.5 mg PO QHS #0 tab 09/03/21 sennosides-docusate sodium [Stool Softener-Stimulant Laxat] 2 tab PO BID 30 Days #120 tab 09/03/21 Hospital Course Operations - (Left hip arthroscopy.) Procedures None Summary of Care Provided Minutes Spent on Discharge: 35 Hospital Course: 71 year old female with below past medical history underwent left hip scope with gluteus medius and minimus repair, rotium augmentation, allograft augmentation (24 x 24 x 2.1mm thickness), trochanteric bursectomy and iliotibial band resection 08/18/[address] Mccormack, admitted to TCU with debility, here for rehabilitation, strengthening, prior to discharge home with . Discharge home with 09/06/2021, [facility] PT/OT, Hospital Bed, Bedside Commode. Physical Exam Const alert General Appearance: cooperative HEENT normocephalic Eyes PERRL and EOMs intact bilaterally Neck supple, no JVD and no carotid bruits Resp normal respiratory effort, normal air movement and clear to auscultation bilaterally Cardio regular rate and regular rhythm GI normal to inspection, nondistended, normoactive bowel sounds, non-tender and non-distended Extremity normal capillary refill General Extremity: Negative for edema Skin no rashes or lesions noted General Skin Exam: no breakdown Psych affect normal Appearance: appropriate Weight / BMI Weight Weight: 99.025 kg Body Mass Index (BMI) 33.8 ABG / Lab / Microbiology Data Result Diagrams: 08/28/21 05:23 08/28/21 05:23 Microbiology: Microbiology 09/01/21 11:04 Nasal Secretion SARS-CoV-2 Antigen (Rapid) - Final 08/27/21 06:30 Nasal Secretion SARS-CoV-2 Antigen (Rapid) - Final D/C Instructions Discharge Diet: No restrictions Discharge Activity: Return to Normal Activity, May Shower and Use Walker Weight Bearing Status: Weight bearing as tolerated Call your doctor if you observe: Fever of 101 or Higher, Inability to urinate, Inability to have a bowel movement, Shortness of breath, Dizziness, Fainting spells, Swelling in the ankles, Chest pain and Uncontrolled pain Additional Instructions: Discharge home with 09/06/2021, [facility] Care PT/OT, Hospital Bed, Bedside Commode. Please Follow Up With: Dr. Mccormack When: As scheduled. Meaningful Use Info Meaningful Use Diagnoses (Choose all that apply): None applicable Discharge Plan Admission Admit Date/Time: 08/20/21 14:08 Primary Reason for Your Visit: Debility. Attending Provider: Zia Blackmon Chi Primary Care Provider: Douglas Willson Instructions Additional Instructions / Restrictions: Discharge home with 09/06/2021, [facility] Care PT/OT, Hospital Bed, Bedside Commode. Discharge Orders/Prescriptions Prescriptions: New pramipexole 1 mg Tablet 1 mg PO DAILY PRN PRN (Reason: Restless leg syndrome) Qty: 0 RF: 0 sennosides-docusate sodium [Stool Softener-Stimulant Laxat] 8.6-50 mg Tablet 2 tab PO BID 30 Days Qty: 120 RF: 0 acetaminophen 500 mg Tablet 1,000 mg PO TID Qty: 0 RF: 0 pramipexole 1.5 mg Tablet 1.5 mg PO QHS Qty: 0 RF: 0 oxycodone 5 mg Tablet 5 mg PO Q4H PRN PRN (Reason: Pain Score 4-10) 7 Days Qty: 42 RF: 0 Continued venlafaxine 150 mg capsule,extended release 24hr 150 mg PO DAILY RF: 0 venlafaxine 75 mg capsule,extended release 24hr 75 mg PO DAILY RF: 0 anastrozole [Arimidex] 1 mg tablet 1 mg PO DAILY RF: 0 zolpidem 10 MG tablet 10 mg PO QHS RF: 0 cholecalciferol (vitamin D3) [Vitamin D3] 125 mcg (5,000 unit) Tablet 125 mcg PO DAILY RF: 0 Discontinued pramipexole [Mirapex] 1.5 mg tablet 1.5 mg PO QHS RF: 0 cephalexin 500 mg capsule 500 mg PO BID Qty: 10 RF: 0 enoxaparin 40 mg/0.4 mL Syringe 40 mg SUBCUT DAILY RF: 0 oxycodone-acetaminophen [Percocet] 5-325 mg Tablet 1 tab PO Q6H PRN (Reason: Pain) RF: 0 ondansetron HCl [Zofran] 4 mg/5 mL Solution 4 mg PO Q8H PRN (Reason: Nausea/vomiting) RF: 0 Referrals / Follow Up: Douglas Willson MD [Primary Care Provider] - 09/17/21 11:20 am Disposition Disposition (needs filled in before D/C Order can be placed): Home Health Service
[2021-09-03] MEDS: Zolpidem Tartrate 5 MG Tablet 10 MG PO (22:42)
[2021-09-03] MEDS: PRAMIPEXOLE DI HCL 1.5 MG PO (22:43)
[2021-09-04] MEDS: Enoxaparin 40 MG/0.4 ML Syringe SC (05:20)
[2021-09-04] MEDS: Acetaminophen 500 MG Tablet 1000 MG PO ×3 (05:21→21:32)
[2021-09-04] MEDS: Anastrozole 1 MG TABLET PO (05:21)
[2021-09-04] MEDS: Venlafaxine XR 150 MG Capsule PO (05:21)
[2021-09-04] MEDS: Venlafaxine XR 75 MG Capsule PO (05:21)
[2021-09-04 06:11] LABS: Absolute Lymphocyte Count 1.96 X10^3/uL (0.83-4.51); Absolute Neutrophil Count 4.8 X10^3/uL (2.0-7.7); Basophil# 0.03 X10^3/uL; Basophil% 0.4 % (0-1); Eosinophil# 0.21 X10^3/uL; Eosinophils% 2.8 % (0-5); Hematocrit 36.8 % (37-47); Hemoglobin 11.7 g/dL (12.0-15.0); Lymphocyte # 1.96 X10^3/ul (0.83-4.51); Lymphocyte % 26.1 % (19-41); Mean Corp Hgb Conc 31.8 g/dL (32-36); Mean Corpuscular Hgb 27.2 pg (27.0-32.0); Mean Corpuscular Volume 85.6 fL (81-99); Mean Platelet Vol. 10.9 fl (6.2-12.0); Monocyte# 0.44 X10^3/uL; Monocyte% 5.9 % (0-10); NRBC Flagged by Analyzer 0 % (0-5); Neutrophil # 4.84 X10^3/uL (2.7-7.7); Neutrophil % 64.5 % (47-70); Platelet Count 242 K/mm3 (150-450); RBC Distribution Width SD 39.9 fl (35.1-43.9); White Blood Count 7.5 K/mm3 (4.4-11.0)
[2021-09-04 06:33] LABS: Anion Gap 4 (5-15); BUN 12 mg/dL (7-18); BUN/Creat Ratio 17.6 RATIO (10-20); Calcium,Total 8.8 mg/dL (8.5-10.1); Chloride 107 mmol/L (98-107); Creatinine, Serum 0.68 mg/dL (0.55-1.02); EST Glomerular Filtration Rate 91 mL/min (>60); Est Glom Filt Rate - Afr Amer 110 mL/min (>60); Estimated Creatinine Clearance 51.63 ml/min; Glucose 142 mg/dL (74-106); Potassium 3.5 mmol/L (3.5-5.1); Sodium Level 139 mmol/L (136-145)
--- NOTE | 2021-09-04 09:37 | NURSING ---
resident and family member Gabriel notified of COVID positive staff member. no further questions
[2021-09-04] MEDS: oxyCODONE 5 MG Tablet PO ×2 (13:13→22:55)
[2021-09-04 13:50] VITALS: PULSE 65; RESP 18; O2SAT 98
[2021-09-04 14:00] VITALS: BP 161/92; PULSE 65; RESP 16; TEMP 36.6; O2SAT 96
--- NOTE | 2021-09-04 14:20 | CASEMGMT ---
Social Work Spoke with pt - she is requesting to DC home 09/05 as DME will be delivered to pts home 09/05. IDT agreeable. Notified [facility]. Plan: DC 09/05 RAISA Hadley
[2021-09-04] MEDS: PRAMIPEXOLE DI HCL 1.5 MG PO (21:32)
[2021-09-04] MEDS: Zolpidem Tartrate 5 MG Tablet 10 MG PO (22:55)
[2021-09-05] MEDS: Enoxaparin 40 MG/0.4 ML Syringe SC (05:43)
[2021-09-05] MEDS: Acetaminophen 500 MG Tablet 1000 MG PO (05:44)
[2021-09-05] MEDS: Venlafaxine XR 75 MG Capsule PO (05:44)
[2021-09-05] MEDS: Venlafaxine XR 150 MG Capsule PO (05:44)
[2021-09-05] MEDS: Anastrozole 1 MG TABLET PO (05:44)
[2021-09-05 09:00] VITALS: PULSE 70; RESP 18; O2SAT 98
[2021-09-05 09:32] VITALS: BP 160/78; PULSE 70; RESP 18; TEMP 36.9; O2SAT 98
== END 2021-09-05 10:00 | disposition home health service (06) | DRG 560 ==
PROVIDERS: Admitting Provider Family Medicine Geriatric Medicine; PCP Family Medicine; Visit Provider Family Medicine Geriatric Medicine
DX: Z47.89 Encounter for other orthopedic aftercare (principal); C49.3 Malignant neoplasm of connective and soft tissue of thorax; G47.33 Obstructive sleep apnea (adult) (pediatric); M50.80 Other cervical disc disorders, unspecified cervical region; K58.9 Irritable bowel syndrome, unspecified; K21.9 Gastro-esophageal reflux disease without esophagitis; G25.81 Restless legs syndrome; M70.62 Trochanteric bursitis, left hip; M79.7 Fibromyalgia; M76.02 Gluteal tendinitis, left hip; M76.30 Iliotibial band syndrome, unspecified leg; F32.A Depression, unspecified; Z79.811 Long term (current) use of aromatase inhibitors; Z87.891 Personal history of nicotine dependence; Z79.899 Other long term (current) drug therapy; Z98.84 Bariatric surgery status
CPT/HCPCS: 36415; 80048; 85025; 87426; 97110; 97116; 97162; 97166; 97530; 97535; 97542; 97802

== ENCOUNTER 2021-10-24 07:30 | Outpatient (RCR) | payer MEDICARE, SELFPAY ==
--- NOTE | 2021-10-07 12:49 | HP.PTEVAL ---
Patient's Visit Information KAYLA WILKERSON is a 71 year old F referred to Physical Therapy by BETSY CONTRERAS with a diagnosis of S/P ENDOSCOPIC GLUTEAL REPAIR WITH ALLOGRAFT AUGMENTATION 08/18/21. Date of Evaluation: 10/07/21 Physical Therapist: Mary Nye PT, Cert MDT - Visit Plan Frequency: 2-3x /Week Duration: 4-6 Weeks Plan: CHECK INCISION NEXT VISIT. *DOS 08/18/21*. NEXT VISIT: INSTRUCT IN ISO HIP ABD WITH BELT SUPINE AND SDLY CLAMS. REHAB PER [facility] PER ARTHROSCOPIC GLUTEUS MEDIUS REPAIR PROTOCOL (IN WORKROOM) PROVIDED WITH PATIENT ORDER. PWB 50% X 1 WK UNTIL 10/10/21 THEN PROGRESS WEIGHTBEARING SLOWLY AND TOLERATED. - Subjective Work/Leisure: RETIRED. Disability: NO. Present symptoms: LEFT BUTTOCK AND THIGH PAIN. CONSTANT AND IMPROVING LEFT FOOT NUMBNESS AT PAD OF TOES. MY LOWER BACK REALLY HURTS. CENTRAL LBP. Present since: 2 YEARS AGO. Pain Scale: LBP WORST 6/10, LEAST 0/10. L BUTTOCK/THIGH WORST 4/10, LEAST 0/10. Currently: L BUTTOCK/THIGH 4/10. Commenced as a result of: FALL/SLIDE DOWN A FLIGHT OF STAIRS. Symptoms at onset: LEFT HIP PAIN. Worse: WALKING, SITTING IN W/C, LYING ON SIDES IN BED. Better: LAYING DOWN IN BED ON BACK, SITTING IN LIFT CHAIR. Disturbed sleep: YES. Previous history/Previous treatment: HIP PROBLEM WAS DX'D IN MAR 2022 WITH MRI. PRIOR TO THAT WAS SEEING DR. GAYLE FOR SCIATICA AND BURSITIS. PRESCRIPTION MEDICATIONS. TRIED INJECTIONS WITH DR. GAYLE 4 TIMES AND SHE ISN'T SURE IF THEY WERE FAVIOLA'S OR NOT BUT THEY DID NOT HELP. HAD BLADDER STIMULATOR REMOVED IN MARCH TO HAVE MRI. NO PHYSICAL THERAPY. NO CHIROPRACTOR. NO BACK SURGERY. NO LOW BACK TREATMENTS PRIOR TO THE FALL. Treatment this episode: ENDOSCOPIC GLUT REPAIR 08/18/21. Coughing/sneezing/straining: NEGATIVE. Gait: STARTED 50% WEIGHT BEARING LLE WEDNESDAY WHEN OK'D BY . SHE REPORTS THAT AFTER SHE DID A LITTLE BIT OF WALKING WITH THE WALKER WEDNESDAY AND WEDNESDAY SHE HURT ALL OVER AND COULD BARELY MOVE WEDNESDAY AND WEDNESDAY. VERY LITTLE WALKING WEDNESDAY AND JUST A LITTLE MORE WALKING YESTERDAY BUT VERY LITTLE. BOWEL OR BLADDER DYSFUNCTION: NO. Accidents: NO. Unexplained weight loss: NO. Imaging: SEE LE AND LUMBAR IMAGING FROM [facility] BELOW. PATIENT ALSO REPORTS HAVING IMAGING AT THE [facility]. EXAM: MR LEFT LOWER EXTREMITY WITHOUT INTRAVENOUS CONTRAST, HIP. CLINICAL INDICATION: S/P FALL Technologist Notes fall 09/2019, pain left SI. area into hip. TECHNIQUE: Multiplanar and multisequence MR images of the left hip without. intravenous contrast. This report was created using [employer]ero[employer] report. Cloudtop technology. COMPARISON: 11.09.19 xr. FINDINGS: TENDONS: FLEXORS: Unremarkable. Intact. EXTENSORS/HAMSTRING: Unremarkable. Intact. ABDUCTORS: Unremarkable. Intact. ADDUCTORS: Unremarkable. Intact. ROTATORS: Unremarkable. Intact. MUSCLES: Increased STIR signal involving the muscles of the left lateral. hip. This suggests an inflammatory process or posttraumatic intramuscular. strain. FLUID: Unremarkable. No joint effusion. No trochanteric bursitis. LABRUM: Unremarkable. No evidence of a tear on this non-arthrogram exam. CARTILAGE: Unremarkable. Articular cartilage intact. BONES/JOINTS: Degenerative findings of the lumbar spine. OTHER SOFT TISSUES: Unremarkable. MRI/Lower Ext Joint Only (Routine). IMPRESSION: . Increased STIR signal involving the muscles of the left lateral hip. This. suggests an inflammatory process or posttraumatic intramuscular strain. . Electronically Signed: Chris Lizama MD. at 14:40 EST. , Service support , . EXAMINATION: CT LUMBAR SPINE - CT Spine Lumbar W/O Contrast Injection. TECHNIQUE: Helically acquired images were obtained of the lumbar spine. 2D reformats. were reviewed. A radiation dose optimization technique was used for this. scan. IV Contrast dosage and agent: None. COMPARISON: None. . FINDINGS: Levoscoliosis of the lumbar spine visualized with apex along the left. lateral aspect of the L2-3 intervertebral disc space. Mild exaggeration of. the normal lordosis of the columns of the lumbar spine visualized with. grade 1 anterolisthesis of L4 4 over L5 seen. Decreased intervertebral disc height visualized most prominent at L4-L5. Nitrogen disc phenomenon visualized at L4-L5 and L5-S1. L1-L2 demonstrates a circumferential disc bulges hypertrophic changes in. the facet joints and ligamentum flavum, suggestion of mild narrowing of the. spinal canal and left neuroforamina, no significant narrowing of the right. neural foramina seen at this level. L2-L3 demonstrates a circumferential disc bulges hypertrophic changes in. the facet joints and ligamentum flavum, moderate narrowing of the spinal. canal and moderate narrowing of bilateral neural foramina is seen at this. level. L3-L4 demonstrates a circumferential disc bulge with prominent hypertrophic. changes in the facet joints and ligamentum flavum, severe narrowing of the. spinal canal with severe narrowing of bilateral neural foramina visualized. at this level. L4-L5 demonstrates a circumferential disc bulges hypertrophic changes in. the facet joints and ligamentum flavum, severe narrowing of the spinal. canal and severe narrowing of bilateral neural foramina visualized at this. level. L5-S1 demonstrates a circumferential disc bulges hypertrophic changes in. the facet joints and ligamentum flavum, no significant narrowing of the. spinal canal is visualized at this level, moderate narrowing of the right. neural foramina and mild narrowing of the left neuroforamina seen at this. level. Visualized abdominal aorta is not dilated. There is no retroperitoneal. adenopathy. CT/Spine Lumbar without Contrast. IMPRESSION: Multilevel degenerative intervertebral disc disease visualized most. prominent at L4-L5 and L3-L4 where there is severe narrowing of the spinal. canal and neural foramina seen. . Electronically Signed: Ike Banks MD. at 10:52 EDT. Tel , Service support , . PMH/Recent major surgery: H/O NECK HERNIATED DISCS AND INJECTIONS WITH DR. GAYLE. FIBROMYALGIA, DEPRESSION, RSL, SLEEP APNEA, MORTANS NEUROMA, HTN. PELVIC AND LUNG CANCER 2016 - REMOVED FROM PELVIS SURGICALLY. NO CHEMO OR RADIATION TREATMENT. OTHER: PATIENT REPORTS SHE WAS IN THE HOSPITAL FOR 3 DAYS AFTER SURGERY THEN TRANSFERRED TO [facility] TCU X APPROX 2 WKS. D/C'D HOME WITH HOME HEALTH X APPROX 2 WEEKS UNTIL LAST WEDNESDAY THEN SAW SURGEONS PA WEDNESDAY. SHE REPORTS DECREASING AMBULATION WHILE ON TCU DUE TO LEFT PEC PAIN THAT WENT AWAY WITH REST. - Objective Sitting/Standing Posture: POOR. FH. RS'S. INCREASED LORDOSIS. SCOLIOSIS ON IMAGING. INCREASED TRUNK FLEXION IN STANDING AND SLOUCHING IN SITTING. THIS PT INSTRUCTED PATIENT IN USE OF LUMBAR SUPPORT IN SITTING. Active Correction of posture: NE. Other Observations: THIS PATIENT WAS BROUGHT INTO PT BY HER IN A W/C AND THEY BROUGHT HER FWW WITH THEM. PATIENT IS TRU UE DEPENDENT TO TRANSFER FROM SIT TO STAND AT WALKER AND IS ABLE TO MAINTAIN PWB ON L LE DURING TRANSFER AND GAIT. THIS PT MADE SMALL ADJUSTMENT TO WALKER FOR BETTER FIT. Sensory deficit: TRU LE LIGHT TOUCH SENSATION GROSSLY INTACT AND SYMMETRICAL. ROM deficit: RIGHT LE WFL. L HIP, KNEE AND ANKLE TIGHTNESS. Motor deficit: RIGHT LE 5/5. L HIP - NT. LEFT KNEE EXT 4/5, KNEE FLEX 4/5, ANKLE 5/5. Core strength: POOR. Palpation: FULLNESS PALPATED DISTAL R QUAD. PATIENT REPORTS THIS IS NOT NEW BUT SHE HAS NOT THOUGHT TO ASK HER DOCTOR ABOUT IT YET. TREATMENT: GAIT TRAINING ON LEVEL SURFACES WITH FWW 2X20 FEET PWB 50% LLE. HOME INSTRUCTION FOR FREQUENT SHORT WALKS. ALSO INSTRUCTED IN GLUT SETS AND AP'S X 10 ABOUT 3 TIMES A DAY - Balance/Special Test Scores Lower Extremity Functional Score: 5 TUG Test Time Seconds: 46.37 30 Second Chair Rise Test Seconds: 8 - Goals Goal 1:: DECREASE C/O LOW BACK AND LEFT LE PAIN TO EASE AMBULATION Goal Time Frame: 4-6 Weeks Goal 2:: INDEP AND SAFE GAIT WITH LEAST DEVIATIONS AND AD ON LEVEL SURFACES AND UP AND DOWN STEPS. Goal Time Frame: 6-8 Weeks Goal 3:: INCREASE LLE ROM PER PROTOCOL. Goal Time Frame: 6-8 Weeks Goal 4:: INCREASE LLE STRENGTH PER PROTOCOL Goal Time Frame: 6-8 Weeks Goal 5:: PATIENT WILL BE INDEP WITH A HEP FOR CONTINUED IMPROVEMENT ONCE FORMAL PHYSICAL THERAPY CONCLUDES Goal Time Frame: 6-8 Weeks - Anticipated Interventions Patient/Client Instruction: Educate patient on: Condition, Plan of Care, Risk Factors For the Purpose of:: To improve self management Therapeutic Exercise to Include: Strength training, Balance training, Body mechanics, Postural training, Flexibilty training, Gait and locomotor training, Neuromotor development, Dynamic Lumbar Stabilization For the Purpose of:: To decrease pain, To increase ROM, To improve muscle performance and motor function, To increase tolerance to activity/condition/position, To improve ability of physical actions for home/community/work/leisure, To improve gait and locomotor functions Thank you for the opportunity to evaluate your patient. For Medicare and Medicare HMO plans, please review the plan of care and approve it. It will need to be FAXED BACK to us at [phone] for Medicare purposes. For Medicare only, by signing this I certify the plan of care. Please let me know if there are questions or concerns regarding this plan of care. Physician Signature: Date:
--- NOTE | 2022-01-13 13:14 | HP.PT.NRP ---
KAYLA WILKERSON was seen in my office for initial evaluation on 10/07/21. The following Plan of Care was established for this patient: Initial Frequency: 2-3x /Week Initial Duration: 4-6 Weeks Patient/Client Instruction: Educate patient on: Condition, Plan of Care, Risk Factors For the Purpose of:: To improve self management Therapeutic Exercise to Include: Strength training, Balance training, Body mechanics, Postural training, Flexibilty training, Gait and locomotor training, Neuromotor development, Dynamic Lumbar Stabilization For the Purpose of:: To decrease pain, To increase ROM, To improve muscle performance and motor function, To increase tolerance to activity/condition/position, To improve ability of physical actions for home/community/work/leisure, To improve gait and locomotor functions This patient was last seen in our office 10/24/21. Pertinent comments regarding their Physical therapy will appear below: This patient has not returned to Physical Therapy and is appropriate to return to MD for further follow-up as needed. At this point I will be discontinuing this patient from physical therapy. I would be happy to see this patient again in the future if found appropriate by the physician. Thank you! Mary Nye, PT, Cert MDT Balance/Gait/Functional tests - Balance/Special Test Scores Lower Extremity Functional Score: 5 TUG Test Time Seconds: 46.37 Tug Test: (fall prevention task force) 30 Second Chair Rise Test Seconds: 8
== END 2021-10-24 19:00 | disposition home or self-care (01) ==
LOC: PT 07:30
PROVIDERS: PCP Family Medicine; Referring Provider Physician Assistant Medical; Visit Provider Physician Assistant Medical
DX: S76.012D Strain of muscle, fascia and tendon of left hip, subsequent encounter (principal)
CPT/HCPCS: 97110; 97162; 97530

== ENCOUNTER → 2022-03-16 | Outpatient (CLI) | payer MEDICARE, SELFPAY ==
--- NOTE | 2022-03-16 08:10 | CT_ITS ---
STUDY: CT CHEST, ABDOMEN T PELVIS WITH CONTRAST REASON FOR EXAM: Female, 71 years old. MALIGNANT NEOPLASM OF CONNECTIVE AND SOFT TISSUE RADIATION DOSAGE (If Supplied By Facility): CTDIvol = ( 24.03 ) mGy, DLP = ( 2122.89 ) mGycm TECHNIQUE: Transaxial imaging was performed following intravenous administration of Oral and amp; IV Readi-CAT and amp; 100mL Isovue-300. Individualized dose optimization techniques were used for this CT. COMPARISON: Comparison is made with prior study dated 02/14/2021. FINDINGS: CHEST Stable benign-appearing bilateral axillary lymph nodes. Once again,, 3 adjacent soft tissue nodules are seen in the anterior medial aspect of the right upper lobe. The largest measures approximately 2.3 cm x 1.6 cm. These are essentially unchanged. Stable 7.9 mm noncalcified nodule in the peripheral lateral aspect of the left lower lobe. This is pleural-based. There is no demonstrated pleural abnormality. Normal heart and pericardium. Normal mediastinum. Normal hilar regions. Normal unenhanced pulmonary arteries. Normal aorta arch and descending thoracic aorta. Normal osseous structures. Small hiatal hernia. Status post subtotal gastrectomy. Fatty infiltration of the liver. ABDOMEN There is decreased attenuation of the liver consistent with steatosis. There are multiple gallstones. Normal spleen. Normal pancreas. Normal bilateral adrenal glands. Normal right kidney. Normal left kidney. The patient is status post subtotal gastrectomy. Normal small intestine. There are multiple colonic diverticula consistent with diverticulosis. The appendix is visualized and appears normal. There is scattered atherosclerotic calcification of the abdominal aorta, without a demonstrated aneurysm. Normal inferior vena cava. There is borderline retroperitoneal lymphadenopathy with enlarged nodes no greater than 10mm in the short axis diameter. Normal abdominal wall. There are diffuse degenerative changes of the visualized lumbar spine. PELVIS Normal urinary bladder. Patient is status post hysterectomy. Normal visualized small intestine. Normal visualized colon. There is no pelvic fluid. There is no pelvic lymphadenopathy or mass lesion. Normal visualized pelvic arteries. CT/CT Chest, Abd, Pel w/Contrast IMPRESSION: Stable examination. Electronically Signed: Louie Forbes MD at 10:03 EST ,
[2022-03-16 08:51] LABS: CREATININE FINGERSTICK < 0.9 mg/dL (0.55-1.02); EGFR FINGERSTICK > 60.0000 mL/min (>60)
== END | disposition home or self-care (01) ==
LOC: CT 08:08
PROVIDERS: PCP Family Medicine; Visit Provider Obstetrics & Gynecology
DX: C49.9 Malignant neoplasm of connective and soft tissue, unspecified (principal); C78.01 Secondary malignant neoplasm of right lung; C78.02 Secondary malignant neoplasm of left lung; K44.9 Diaphragmatic hernia without obstruction or gangrene; Z90.710 Acquired absence of both cervix and uterus; R59.1 Generalized enlarged lymph nodes; Z98.84 Bariatric surgery status; K80.20 Calculus of gallbladder without cholecystitis without obstruction; K57.30 Diverticulosis of large intestine without perforation or abscess without bleeding
CPT/HCPCS: 71260; 74177; Q9967

== ENCOUNTER → 2022-03-31 | Outpatient (CLI) | payer MEDICARE, SELFPAY ==
--- NOTE | 2022-03-31 18:45 | CT_ITS ---
EXAM: CT MAXILLOFACIAL WITHOUT INTRAVENOUS CONTRAST CLINICAL INDICATION: Sinusitis. TECHNIQUE: Helically acquired images were obtained of the face without intravenous contrast. This CT exam was performed using one or more of the following dose reduction techniques: automated exposure control, adjustment of the mA and/or kV according to patient size, and/or use of iterative reconstruction technique. This report was created using [employer] report generation technology. RADIATION DOSE: CTDIvol = 33.06 mGy, DLP = 730.55 mGy-cm COMPARISON: None. FINDINGS: BONES/JOINTS: Unremarkable. No displaced fracture. No discrete lytic or blastic abnormalities. SOFT TISSUES: Unremarkable. No focal subcutaneous swelling. No discrete fluid collections. VASCULATURE: Posterior bulging of the right hypopharyngeal wall due to medial pharyngeal course of the right common carotid artery bifurcation and right cervical internal carotid artery. LYMPH NODES: Small benign reactive nodes in the suprahyoid neck. ORBITS: Unremarkable. Both globes are unremarkable. Extraocular muscles are normal. Retrobulbar fat appears unremarkable. SUBMANDIBULAR/PAROTID GLANDS: Normal parotid spaces and parapharyngeal spaces. SINUSES: Pronounced mucosal thickening and obliteration of the left maxillary sinus with expansion of the overall size of the left cameron sinus and the presence of a sclerotic wall thickening. There is partial obliteration of the left lateral nasal wall and complete obliteration of the left ostiomeatal unit due to extension of the left maxillary sinus mucosal thickening into the left nasal vault. Mucosal thickening with complete obliteration of the left maxillary sinus with sclerotic wall thickening and mucosal thickening obstructing the left sphenoethmoidal recess. Mild mucosal thickening of the left ethmoid sinus. Normal right sphenoid sinus and right ethmoid sinus. Minimal mucosal thickening in the left frontal sinus. Normal right frontal sinus. Small mucus retention cyst in the floor of the right maxillary sinus. Normal and patent right ostiomeatal unit. MASTOID AIR CELLS: Unremarkable as visualized. Clear. DENTAL: No acute findings. No periodontal osseous erosion. CT/Sinus/Facial Bone IMPRESSION: 1. Complete opacification and obliteration of the left maxillary sinus with expansion of the overall size of the left maxillary sinus despite presence of sclerotic bone thickening. This is due to chronic sinusitis. There is obstruction of the left osteomeatal unit and soft tissue density in the left lateral nasal wall with missing portions of the left lateral nasal wall. This blends imperceptibly with the complete obliteration of the left maxillary sinus. Recommend endoscopy for further evaluation. This will help exclude obstructing mass in the left lateral nasal wall causing obstruction and chronic left maxillary sinusitis. 2. Mucosal thickening with obstruction of the left sphenoethmoidal recess causing chronic left sphenoid sinusitis. 3. Mild mucosal thickening in the left ethmoid sinus and minimal mucosal thickening of the left medial frontal sinus. 4. Normal remaining paranasal sinuses. 5. Bulging right hypopharyngeal wall due to medial pharyngeal course of the right common carotid artery bifurcation and right cervical internal carotid artery. Electronically Signed: Armando Frausto MD at 11:32 EST ,
== END | disposition home or self-care (01) ==
LOC: CT 18:40
PROVIDERS: PCP Family Medicine; Referring Provider Otolaryngology; Visit Provider Otolaryngology
DX: J32.8 Other chronic sinusitis (principal); J32.3 Chronic sphenoidal sinusitis
CPT/HCPCS: 70486

== ENCOUNTER → 2022-04-01 | Outpatient (CLI) | payer MEDICARE, SELFPAY ==
--- NOTE | 2022-04-01 09:38 | BI_ITS ---
MAMMOGRAPHY - BILATERAL SCREENING REASON FOR EXAM: Female, 71 years old. Routine annual screening examination. PERTINENT HISTORY: Remote right excisional breast biopsy in 1999. No family history of breast cancer. TECHNIQUE: Digital bilateral breast gregory (3D mammographic acquisition) in the CC and MLO projections. 2-D mediolateral oblique (MLO) and craniocaudad (CC) views of both breasts were obtained. CAD: Full Field Digital Mammography with Computer Added Detection was performed. COMPARISON: Mammogram from 04/03/2021, 04/02/2020. FINDINGS: Breast Composition: There are scattered areas of fibroglandular density. There are no dominant masses or suspicious calcifications. No other significant abnormalities are identified. There has been no significant change since the prior study. BI/SCRN MAMM (CAD)W/GREGORY BILAT IMPRESSION: Stable bilateral screening mammogram. Yearly follow-up mammogram recommended. (A) ASSESSMENT CATEGORY: BIRADS Category 1: Negative. A letter regarding these results will be sent to the patient by the facility within 30 days. Approximately 10% of breast cancers are not detected by mammography. A normal mammogram should not delay biopsy of a clinically suspicious abnormality. Electronically Signed: Gama Oquendo, at 8:48 EST ,
== END | disposition home or self-care (01) ==
LOC: OPBI 09:36
PROVIDERS: PCP Family Medicine; Referring Provider Family Medicine; Visit Provider Family Medicine
DX: Z12.31 Encounter for screening mammogram for malignant neoplasm of breast (principal)
CPT/HCPCS: 77063; 77067

== ENCOUNTER → 2022-04-16 | Outpatient (CLI) | payer MEDICARE, SELFPAY ==
[2022-04-16 12:19] LABS: Absolute Lymphocyte Count 1.87 X10^3/uL (0.83-4.51); Basophil# 0.02 X10^3/uL; Basophil% 0.2 % (0-1); Eosinophil# 0.21 X10^3/uL; Eosinophils% 2.4 % (0-5); Hematocrit 41.6 % (37-47); Hemoglobin 13.1 g/dL (12.0-15.0); Lymphocyte # 1.87 X10^3/ul (0.83-4.51); Lymphocyte % 21.4 % (19-41); Mean Corp Hgb Conc 31.5 g/dL (32-36); Mean Corpuscular Hgb 27.2 pg (27.0-32.0); Mean Corpuscular Volume 86.3 fL (81-99); Mean Platelet Vol. 12.6 fl (6.2-12.0); Monocyte# 0.58 X10^3/uL; Monocyte% 6.6 % (0-10); NRBC Flagged by Analyzer 0 % (0-5); Neutrophil % 68.6 % (47-70); Platelet Count 219 K/mm3 (150-450); RBC Distribution Width CV 12.6 % (11.6-14.6); RBC Distribution Width SD 39.7 fl (35.1-43.9); Red Blood Count 4.82 M/mm3 (4.2-5.4); White Blood Count 8.8 K/mm3 (4.4-11.0)
[2022-04-16 12:26] LABS: ALB/GLOB Ratio 1.2 RATIO (0.9-2.4); AST(SGOT) 14 U/L (15-37); Alanine Aminotransfer ALT/SGPT 26 U/L (13-56); Alkaline Phosphatase 84 U/L (45-117); Anion Gap 4 (5-15); BUN 19 mg/dL (7-18); BUN/Creat Ratio 24.5 RATIO (10-20); Chloride 109 mmol/L (98-107); Creatinine, Serum 0.78 mg/dL (0.55-1.02); EST Glomerular Filtration Rate 78 mL/min (>60); Est Glom Filt Rate - Afr Amer 94 mL/min (>60); Globulin 3.3 g/dL (2.2-4.2); Glucose 99 mg/dL (74-106); Potassium 5.4 mmol/L (3.5-5.1); Protein, Total 7.3 g/dL (6.4-8.2); Sodium Level 142 mmol/L (136-145)
== END | disposition home or self-care (01) ==
LOC: BFHLAB 09:02
PROVIDERS: PCP Family Medicine; Visit Provider Family Medicine
DX: Z01.818 Encounter for other preprocedural examination (principal)
CPT/HCPCS: 36415; 80053; 85025

== ENCOUNTER → 2022-04-17 | Outpatient (CLI) | payer MEDICARE, SELFPAY ==
[2022-04-17 12:37] LABS: Potassium 3.8 mmol/L (3.5-5.1)
== END | disposition home or self-care (01) ==
LOC: BFHLAB 09:43
PROVIDERS: PCP Family Medicine; Visit Provider Family Medicine
DX: E87.5 Hyperkalemia (principal)
CPT/HCPCS: 36415; 84132

== ENCOUNTER 2022-05-01 16:24 | Inpatient (IN) | payer MEDICARE, SELFPAY ==
[2022-05-01 16:45] VITALS: BP 170/89; PULSE 70; RESP 16; TEMP 36.3; O2SAT 98
[2022-05-01 16:57] VITALS: BMI 38.5
[2022-05-01 17:00] VITALS: O2SAT 98
--- NOTE | 2022-05-01 18:56 | PCM.HP.STD ---
HPI - General General Date of Admission: 05/01/22 Date of Service: 05/01/22 Chief Complaint: Here for rehab. HPI Narrative KAYLA WILKERSON, is a 72 Female who presents with followin04/29/[address] [facility]. 04/29/2022 Dr. Mccormack performed left hip scope revision gluteus medius and minimus repair, Rotium augmentation, greater trochanteric bursectomy, iliotibial band resection. 05/01/2022 Admit to TCU with debility, here for rehabilitation, strengthening, prior to discharge home with . 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 [History Last Taken 01/05/19] venlafaxine 150 mg capsule,extended release 24 hr 150 mg PO DAILY Depression 11/07/18 [History Last Taken 01/05/19] venlafaxine 75 mg capsule,extended release 24 hr 75 mg PO DAILY Depression 11/07/18 [History Last Taken 01/05/19] zolpidem 10 mg tablet 10 mg PO QHS Insomnia 04/01/19 [History Last Taken Unknown] cholecalciferol (vitamin D3) 125 mcg (5,000 unit) tablet (Vitamin D3) 125 mcg PO DAILY supplement 03/25/21 [History Last Taken Unknown] oxycodone 5 mg tablet 5 mg PO Q4H PRN PRN Pain Score 4-10 7 days #42 tabs 09/03/21 [Rx Last Taken Unknown] acetaminophen 500 mg tablet 1,000 mg PO Q6H PRN PRN Pain 05/01/22 [History Last Taken Unknown] pramipexole 1.5 mg tablet 1.5 mg PO QHS restless leg 05/01/22 [History Last Taken Unknown] Allergy/AdvReac Type Severity Reaction Status Date / Time No Known Allergies Allergy Verified 04/01/21 07:25 Family History Unknown No problems noted. Surgical History EXCISION PELVIC LEIOMYOSARCOMA H/O gastric sleeve History of hysterectomy History of surgical procedure on mouth Hx of laparoscopic gastric banding IMPLANTATION OF INTERSTIM Social History household members: spouse Smoking Status: Former smoker how long ago did patient quit smokin YEARS alcohol intake: never substance use type: does not use additional social history: DOES NOT USE ASPIRIN DOES NOT USE IBUPROFEN ROS Constitutional Constitutional: Denies chills, fever(s) or weight gain ENT HEENT: Denies headache(s), nasal congestion or nasal discharge Cardiovascular Cardiovascular: Denies chest pain or palpitations Respiratory/Chest Respiratory/Chest: Denies cough, excessive phlegm production or shortness of breath with exertion Gastrointestinal Gastrointestinal: Denies abdominal pain, nausea or vomiting Genitourinary Genitourinary: Denies dysuria Musculoskeletal Musculoskeletal: Denies joint pain or joint swelling Integumentary Integumentary: Denies rash or wounds Neurologic Neurologic: Denies focal weakness, numbness or tingling Psychiatric Psychiatric: Denies anxiety, auditory hallucinations, depression, homicidal ideation or suicidal ideation Vital Signs Vital Signs Vital Signs: 05/01/22 16:45 05/01/22 17:00 Temperature 97.4 F L Temperature Source Temporal Pulse Rate 70 Pulse Rhythm Regular Pulse Strength Normal (2+) Respiratory Rate 16 Respiratory Effort Normal Non-Labored Respiratory Depth Normal Respiratory Pattern Normal Blood Pressure 170/89 H Blood Pressure Mean 116 Blood Pressure Source Monitor Blood Pressure Position Semi-Fowlers Blood Pressure Location Left Arm Pulse Ox 98 98 Oxygen Delivery Method Room Air Room Air Weight Weight: 105.1 kg Body Mass Index (BMI) 38.5 Physical Exam Const alert General Appearance: cooperative HEENT normocephalic Eyes PERRL and EOMs intact bilaterally Neck supple, no JVD and no carotid bruits Resp normal respiratory effort, normal air movement and clear to auscultation bilaterally Cardio regular rate and regular rhythm GI normal to inspection, nondistended, normoactive bowel sounds, non-tender and non-distended Extremity normal capillary refill General Extremity: Negative for edema Skin no rashes or lesions noted General Skin Exam: no breakdown Psych affect normal Appearance: appropriate Assessment & Plan Assessment/Plan (1) Debility: (2) Tear of left gluteus medius tendon: (3) Restless leg syndrome: (4) Depression: (5) Insomnia: (6) Leiomyosarcoma: (7) Vitamin D deficiency: (8) Obstructive sleep apnea: PLAN: Plan 72 year old female with below past medical history hospitalized for scope revision left hip surgery, admitted to TCU with debility, here for rehabilitation, strengthening, prior to discharge home with . Debility - PT/OT. Pain - Tylenol 1000mg q6h prn pain (1-5), Oxycodone 5mg q4h prn pain (6-10). Bowel - senna/colace 1 tablet bid, Dulcolax 10mg pr x 1 prn, MOM 30ml po x 1 prn. Adult immunization - Administer pneumonia vaccine, covid19 vaccine, flu vaccine as appropriate. DVT prophylaxis - Aspirin 325mg daily thru 06/01/2022. Leiomyosarcoma - Anastrozole 1mg qhs. Nutrition - Ensure Plus 120ml po tidcm. Restless Leg syndrome - Mirapex 1.5mg qhs. Depression - Venlafaxine XR 225mg daily, stable chronic ocean transportation intermediary use, GDR not recommended. Vitamin D deficiency - D3 125mcg daily. Insomnia - Zolpidem 5mg qhs, stable chronic intermediate use, GDR not recommended.
[2022-05-01] MEDS: Zolpidem Tartrate 5 MG Tablet PO (21:17)
[2022-05-01] MEDS: Anastrozole 1 MG TABLET PO (21:18)
[2022-05-01] MEDS: Pramipexole Di-HCl 1 MG Tablet 1.5 MG PO (21:18)
[2022-05-01] MEDS: Senna/Docusate Sodium 1 Tablet PO (21:18)
[2022-05-01] MEDS: oxyCODONE 5 MG Tablet PO (21:23)
[2022-05-02] MEDS: Venlafaxine XR 150 MG Capsule PO (04:51)
[2022-05-02] MEDS: Senna/Docusate Sodium 1 Tablet PO ×2 (04:51→17:29)
[2022-05-02] MEDS: Cholecalciferol (Vit D3) 125 MCG CAPSULE (5,000 UNITS) PO (04:51)
[2022-05-02] MEDS: Acetaminophen 500 MG Tablet 1000 MG PO ×2 (04:51→17:29)
[2022-05-02] MEDS: Venlafaxine XR 75 MG Capsule PO (04:51)
[2022-05-02] MEDS: oxyCODONE 5 MG Tablet PO ×4 (04:52→22:23)
[2022-05-02 07:44] LABS: Absolute Lymphocyte Count 1.55 X10^3/uL (0.83-4.51); Absolute Neutrophil Count 5.7 X10^3/uL (2.0-7.7); Basophil# 0.02 X10^3/uL; Basophil% 0.3 % (0-1); Eosinophil# 0.17 X10^3/uL; Eosinophils% 2.1 % (0-5); Hemoglobin 11.6 g/dL (12.0-15.0); Lymphocyte # 1.55 X10^3/ul (0.83-4.51); Lymphocyte % 19.6 % (19-41); Mean Corp Hgb Conc 31.4 g/dL (32-36); Mean Corpuscular Hgb 26.9 pg (27.0-32.0); Mean Corpuscular Volume 85.6 fL (81-99); Mean Platelet Vol. 10.7 fl (6.2-12.0); Monocyte# 0.43 X10^3/uL; Monocyte% 5.4 % (0-10); NRBC Flagged by Analyzer 0 % (0-5); Neutrophil # 5.72 X10^3/uL (2.7-7.7); Neutrophil % 72.2 % (47-70); Platelet Count 186 K/mm3 (150-450); RBC Distribution Width CV 12.7 % (11.6-14.6); RBC Distribution Width SD 39.5 fl (35.1-43.9); Red Blood Count 4.32 M/mm3 (4.2-5.4); White Blood Count 7.9 K/mm3 (4.4-11.0)
[2022-05-02 07:55] LABS: Anion Gap 7 (5-15); BUN 14 mg/dL (7-18); BUN/Creat Ratio 21.1 RATIO (10-20); Calcium,Total 8.6 mg/dL (8.5-10.1); Chloride 107 mmol/L (98-107); Creatinine, Serum 0.66 mg/dL (0.55-1.02); EST Glomerular Filtration Rate 94 mL/min (>60); Est Glom Filt Rate - Afr Amer 113 mL/min (>60); Glucose 112 mg/dL (74-106); Potassium 3.8 mmol/L (3.5-5.1); Sodium Level 142 mmol/L (136-145)
[2022-05-02] MEDS: Aspirin 325 MG Tablet PO (08:29)
[2022-05-02 08:50] VITALS: PULSE 75; RESP 18; O2SAT 96
[2022-05-02] MEDS: Magnesium Hydroxide 30 ML UDC PO (09:04)
[2022-05-02] MEDS: Tuberculin,Purif.prot.deriv. 50 TU/ML Vial 0.1 ML ID (10:33)
[2022-05-02 15:17] VITALS: BP 157/73; PULSE 70; RESP 12; TEMP 37; O2SAT 96
[2022-05-02] MEDS: Pramipexole Di-HCl 1 MG Tablet 1.5 MG PO (22:24)
[2022-05-02] MEDS: Zolpidem Tartrate 5 MG Tablet PO (22:24)
[2022-05-02] MEDS: Anastrozole 1 MG TABLET PO (22:26)
[2022-05-03] MEDS: Venlafaxine XR 150 MG Capsule PO (06:25)
[2022-05-03] MEDS: Venlafaxine XR 75 MG Capsule PO (06:26)
[2022-05-03] MEDS: Acetaminophen 500 MG Tablet 1000 MG PO ×2 (06:26→22:57)
[2022-05-03] MEDS: Cholecalciferol (Vit D3) 125 MCG CAPSULE (5,000 UNITS) PO (06:26)
[2022-05-03] MEDS: oxyCODONE 5 MG Tablet PO ×3 (08:18→22:56)
[2022-05-03] MEDS: Aspirin 325 MG Tablet PO (08:19)
--- NOTE | 2022-05-03 15:00 | NURSING ---
pt c/o sore tongue/lips/throat. redness noted, dry tongue. pt feels she has thrush. Dr Blackmon updated, new order for nystatin s/s. pt also stated she is sure that is what it is because she has had it before.
[2022-05-03 15:31] VITALS: BP 146/76; PULSE 75; RESP 16; TEMP 36.9; O2SAT 97
[2022-05-03] MEDS: NYSTATIN 500,000 UNIT/5 ML UDC 500000 UNIT PO ×2 (16:07→21:13)
[2022-05-03] MEDS: Pramipexole Di-HCl 1 MG Tablet 1.5 MG PO (21:11)
[2022-05-03] MEDS: Anastrozole 1 MG TABLET PO (21:13)
--- NOTE | 2022-05-03 22:50 | NURSING ---
CPAP applied at hs.
[2022-05-03] MEDS: Zolpidem Tartrate 5 MG Tablet PO (22:56)
[2022-05-04] MEDS: Venlafaxine XR 75 MG Capsule PO (05:47)
[2022-05-04] MEDS: Venlafaxine XR 150 MG Capsule PO (05:47)
[2022-05-04] MEDS: Cholecalciferol (Vit D3) 125 MCG CAPSULE (5,000 UNITS) PO (05:48)
[2022-05-04] MEDS: NYSTATIN 500,000 UNIT/5 ML UDC 500000 UNIT PO ×4 (05:48→21:26)
[2022-05-04] MEDS: Aspirin 325 MG Tablet PO (08:15)
[2022-05-04] MEDS: Acetaminophen 500 MG Tablet 1000 MG PO ×2 (11:25→22:48)
[2022-05-04] MEDS: oxyCODONE 5 MG Tablet PO ×3 (11:25→22:49)
--- NOTE | 2022-05-04 14:01 | PCM.PN.DRR ---
TCU RX Drug Regimen Review Subjective: TCU Admission. 72 YOF presented to [facility] for surgery. Hospitalized for scope revision left hip surgery. Admitted to TCU with debility for strengthening and rehabilitation. Objective: Allergies No Known Allergies Allergy (Verified 04/01/21 07:25) Current Medications Generic Name Dose Route Start Last Admin Trade Name Freq PRN Reason Stop Dose Admin Acetaminophen 1,000 mg 05/01/22 19:07 05/04/22 11:25 Acetaminophen 500 Mg Tablet PO 1,000 mg Q6H PRN PRN Administration Pain Score 1-5 Anastrozole 1 mg 05/01/22 22:00 05/03/22 21:13 Anastrozole 1 Mg Tablet PO 1 mg QHS CECELIA Administration Aspirin 325 mg 05/02/22 08:00 05/04/22 08:15 Aspirin 325 Mg Tablet PO 06/01/22 08:01 325 mg BREAKFAST CECELIA Administration Bisacodyl 10 mg 05/01/22 19:07 Bisacodyl 10 Mg Suppository RC X1 PRN Constipation Cholecalciferol 125 mcg 05/02/22 06:00 05/04/22 05:48 Cholecalciferol (Vit D3) 125 Mcg Capsule (5,000 Units) PO 125 mcg DAILY CECELIA Administration Magnesium Hydroxide 30 ml 05/01/22 19:07 05/02/22 09:04 Magnesium Hydroxide 30 Ml Udc PO 30 ml X1 PRN Administration Constipation Nystatin 500,000 unit 05/03/22 17:00 05/04/22 11:27 Nystatin 500,000 Unit/5 Ml Udc PO 05/13/22 17:01 500,000 unit 4X/DAY CECELIA Administration Oxycodone HCl 5 mg 05/01/22 17:22 05/04/22 11:25 Oxycodone 5 Mg Tablet PO 5 mg Q4H PRN PRN Administration Pain Score 6-10 Pramipexole Dihydrochloride 1.5 mg 05/01/22 22:00 05/03/22 21:11 Pramipexole Di-Hcl 1 Mg Tablet PO 1.5 mg QHS CECELIA Administration Senna/Docusate Sodium 1 tablet 05/01/22 18:00 05/04/22 05:46 Senna/Docusate Sodium 1 Tablet PO Not Given BID CECELIA Tuberculin PPD 0.1 ml 05/09/22 10:00 Tuberculin,Purif.Prot.Deriv. 50 Tu/Ml Vial ID 05/09/22 10:01 X1 ONE Venlafaxine HCl 75 mg 05/02/22 06:00 05/04/22 05:47 Venlafaxine Xr 75 Mg Capsule PO 75 mg DAILY CECELIA Administration Venlafaxine HCl 150 mg 05/02/22 06:00 05/04/22 05:47 Venlafaxine Xr 150 Mg Capsule PO 150 mg DAILY CECELIA Administration Zolpidem Tartrate 5 mg 05/01/22 17:32 05/03/22 22:56 Zolpidem Tartrate 5 Mg Tablet PO 5 mg QHS CECELIA Administration Problem List (Last Reviewed 05/01/22 @ 18:[address] Zia Blackmon MD) Obstructive sleep apnea (Acute) Vitamin D deficiency (Acute) Leiomyosarcoma (Acute) Insomnia (Acute) Depression (Acute) Restless leg syndrome (Acute) Tear of left gluteus medius tendon (Acute) Debility (Acute) Vital Signs Temp Pulse Resp BP Pulse Ox O2 Del Method 98.4 F 75 16 146/76 H 97 Room Air 05/03/22 15:31 05/03/22 15:31 05/03/22 15:31 05/03/22 15:31 05/03/22 15:31 05/04/22 10:00 Oxygen Delivery Method Room Air Weight: 105.1 kg Body Mass Index (BMI) 38.5 Sodium 142 mmol/L (136-145) 05/02/22 07:31 Potassium 3.8 mmol/L (3.5-5.1) 05/02/22 07:31 Chloride 107 mmol/L (98-107) 05/02/22 07:31 Carbon Dioxide 28.0 mmol/L (21.0-32.0) 05/02/22 07:31 Anion Gap 7 (5-15) 05/02/22 07:31 BUN 14 mg/dL (7-18) 05/02/22 07:31 Creatinine 0.66 mg/dL (0.55-1.02) 05/02/22 07:31 Est GFR (MDRD) Af Amer 113 mL/min (>60) 05/02/22 07:31 Est GFR (MDRD) Non-Af 94 mL/min (>60) 05/02/22 07:31 BUN/Creatinine Ratio 21.1 RATIO (10-20) H 05/02/22 07:31 Glucose 112 mg/dL (74-106) H 05/02/22 07:31 Assessment/Plan: 1. Pain: acetaminophen 1000mg PO Q6H PRN pain 1-5 and oxycodone 5mg PO Q4H PRN pain 6-10. Resident has had 5 doses of acetaminophen for pain 4-8 in the back/hip/buttock and 9 doses of oxycodone for pain 5-8 in the hip. Please continue to monitor for increased pain, PRN usage, constipation and respiratory depression. 2. Bowel: senna/docusate 1T PO BID, bisacodyl 10mg RC x1 PRN constipation and MOM 30mL PO x1 PRN constipation. Resident has refused the last 3/6 doses of senna/docusate. Please consider changing to PRN if clinically appropriate. Thanks. No documented bowel movements. Resident had 1 dose of MOM. Please continue to monitor for constipation and PRN usage. 3. DVT prophylaxis: aspirin 325mg PO daily thru 06/01/22. Please continue to monitor hemoglobin (last 11.6g/dL) and S/S of bleeding. 4. Leiomyosarcoma: anastrozole 1mg PO QHS. Please continue to monitor for hot flashes, insomnia (patient taking zolpidem) and S/S of VTE. 5. Restless leg syndrome: pramipexole 1.5mg PO QHS. Please continue to monitor for S/S of restless legs. 6. Vitamin D deficiency: cholecalciferol 125mcg PO daily. Please consider ordering a vitamin D level. Last level from 10/2018. Thanks. 7. Thrush (per nursing note): nystatin 500,000units PO 4x/day thru 05/13/22. Please continue to monitor for improvement in thrush. Assessment/Plan for indications treated with psychotropic medications: 1. Depression: venlafaxine XR 225mg PO daily. Please see physician note regarding GDR. Please continue to monitor for suicidal ideation (black box warning), falls/fractures (BEERs criteria medication), sodium and weight gain. 2. Insomnia: zolpidem 5mg PO QHS. Please see physician note regarding GDR. Please continue to monitor for excessive drowsiness, drug induced complex sleep-related disorders (e.g. eating while sleeping, black box warning), delirium/dementia/falls/fractures (BEERs criteria medication.) Medical chart and medication regimen reviewed. The following medication irregularities or issues were identified: 1. Senna/docusate 1T PO BID. Resident has refused the last 3/6 doses of senna/docusate. Please consider changing to PRN if clinically appropriate. Thanks. 2. Cholecalciferol 125mcg PO daily. Please consider ordering a vitamin D level. Last level from 10/2018. Thanks. Date of Note:: 05/04/22
[2022-05-04 14:45] VITALS: BP 161/81; PULSE 65; RESP 14; TEMP 36.9; O2SAT 98
--- NOTE | 2022-05-04 14:55 | CASEMGMT ---
Social Work Met with patient to complete initial assessment. Pt known to this worker from previous stay. Verified contacts. Discussed code status and MOLST form. Pt confirms full code. Educated to [facility] insurance with NRD 05/05 and continued stay is not guaranteed. Pt's goal is to return home at OF with . Pt will need to complete flight of steps to bed/bathroom. SW to continue to follow for DC planning. Genoveva Chapman, DETAIL SERGEANT SOLE SEWER HAND
--- NOTE | 2022-05-04 14:55 | NURSING ---
Patient refused to get covid booster. Educated on the vaccine and educational pamphlet given to patient.
--- NOTE | 2022-05-04 14:56 | NURSING ---
Job Setter Honing Note; Activity Asset: Ugo Flores is independent in her choice of daily activities. She has her laptop she will play games on, pay her bills, watch movies too. Her family will call and visit with her and bring her other items she may need. She did state she would like to attend bingo and crafts when not in therapy.
[2022-05-04] MEDS: Pramipexole Di-HCl 1 MG Tablet 1.5 MG PO (21:24)
[2022-05-04] MEDS: Anastrozole 1 MG TABLET PO (21:26)
[2022-05-04] MEDS: Zolpidem Tartrate 5 MG Tablet PO (22:48)
[2022-05-05] MEDS: Cholecalciferol (Vit D3) 125 MCG CAPSULE (5,000 UNITS) PO (05:03)
[2022-05-05] MEDS: Venlafaxine XR 75 MG Capsule PO (05:03)
[2022-05-05] MEDS: NYSTATIN 500,000 UNIT/5 ML UDC 500000 UNIT PO ×4 (05:03→21:23)
[2022-05-05] MEDS: Venlafaxine XR 150 MG Capsule PO (05:03)
[2022-05-05] MEDS: Aspirin 325 MG Tablet PO (08:04)
[2022-05-05] MEDS: oxyCODONE 5 MG Tablet PO ×3 (09:24→22:20)
[2022-05-05] MEDS: Acetaminophen 500 MG Tablet 1000 MG PO ×3 (09:24→22:20)
[2022-05-05 15:24] VITALS: BP 146/69; PULSE 67; RESP 16; TEMP 36.1; O2SAT 97
[2022-05-05] MEDS: Anastrozole 1 MG TABLET PO (21:22)
[2022-05-05] MEDS: Pramipexole Di-HCl 1 MG Tablet 1.5 MG PO (21:23)
[2022-05-05 22:00] VITALS: PULSE 67; RESP 16; O2SAT 98
[2022-05-05] MEDS: Zolpidem Tartrate 5 MG Tablet PO (22:20)
[2022-05-06] MEDS: Cholecalciferol (Vit D3) 125 MCG CAPSULE (5,000 UNITS) PO (05:09)
[2022-05-06] MEDS: Venlafaxine XR 75 MG Capsule PO (05:09)
[2022-05-06] MEDS: Venlafaxine XR 150 MG Capsule PO (05:09)
[2022-05-06] MEDS: NYSTATIN 500,000 UNIT/5 ML UDC 500000 UNIT PO ×4 (05:09→21:16)
[2022-05-06] MEDS: Acetaminophen 500 MG Tablet 1000 MG PO ×3 (05:19→21:31)
[2022-05-06] MEDS: oxyCODONE 5 MG Tablet PO ×4 (05:19→21:30)
[2022-05-06] MEDS: Aspirin 325 MG Tablet PO (07:46)
--- NOTE | 2022-05-06 09:03 | CASEMGMT ---
Social Work Plan of care meeting held. Patient present as well as patient spouse, Gabriel. This clinical social worker communicating to patient that next review date with insurance was due on 05/05/2022 and review continues to be pending on if continued stay is approved. Patient and Gabriel aware that not able to guarantee continued stay approval by insurance. Patient plans to return to home with Gabriel at time of discharge. Team recommending for patient to continue with further care and treatment on the Transitional Care Unit as patient is making progress and showing benefit from receiving therapy. Social Work to continue to follow. Jamaica Gallardo MSW, ADENIKE
[2022-05-06 09:44] VITALS: PULSE 66; RESP 14
--- NOTE | 2022-05-06 12:46 | CASEMGMT ---
Social Work Continued stay approved by insurance with next update due on 05/11/2022. This clinical social worker updated patient on above information. Patient voiced understanding and plans to update patient spouse. Social Work to continue to follow. Jamaica KLINE, ADENIKE
[2022-05-06 16:00] VITALS: BP 162/69; PULSE 79; RESP 16; TEMP 36.3
[2022-05-06] MEDS: Anastrozole 1 MG TABLET PO (21:16)
[2022-05-06] MEDS: Pramipexole Di-HCl 1 MG Tablet 1.5 MG PO (21:16)
[2022-05-06] MEDS: Zolpidem Tartrate 5 MG Tablet PO (21:30)
[2022-05-07] MEDS: Cholecalciferol (Vit D3) 125 MCG CAPSULE (5,000 UNITS) PO (05:06)
[2022-05-07] MEDS: Venlafaxine XR 150 MG Capsule PO (05:06)
[2022-05-07] MEDS: NYSTATIN 500,000 UNIT/5 ML UDC 500000 UNIT PO ×4 (05:06→20:11)
[2022-05-07] MEDS: Venlafaxine XR 75 MG Capsule PO (05:06)
[2022-05-07] MEDS: Aspirin 325 MG Tablet PO (08:37)
[2022-05-07] MEDS: oxyCODONE 5 MG Tablet PO ×2 (11:10→22:28)
[2022-05-07] MEDS: Acetaminophen 500 MG Tablet 1000 MG PO ×2 (11:10→22:29)
--- NOTE | 2022-05-07 12:46 | MDS.RN ---
Pain interview for KARINE 05/08/22
[2022-05-07 15:17] VITALS: BP 161/85; PULSE 71; RESP 14; TEMP 36.3; O2SAT 93
[2022-05-07 20:00] VITALS: PULSE 73; RESP 16; O2SAT 97
[2022-05-07] MEDS: Anastrozole 1 MG TABLET PO (20:11)
[2022-05-07] MEDS: Pramipexole Di-HCl 1 MG Tablet 1.5 MG PO (20:12)
[2022-05-07] MEDS: Zolpidem Tartrate 5 MG Tablet PO (22:28)
[2022-05-08] MEDS: Cholecalciferol (Vit D3) 125 MCG CAPSULE (5,000 UNITS) PO (06:28)
[2022-05-08] MEDS: Venlafaxine XR 75 MG Capsule PO (06:28)
[2022-05-08] MEDS: NYSTATIN 500,000 UNIT/5 ML UDC 500000 UNIT PO ×4 (06:28→22:23)
[2022-05-08] MEDS: Venlafaxine XR 150 MG Capsule PO (06:28)
[2022-05-08] MEDS: Aspirin 325 MG Tablet PO (08:20)
[2022-05-08] MEDS: oxyCODONE 5 MG Tablet PO ×3 (08:23→22:29)
[2022-05-08] MEDS: Acetaminophen 500 MG Tablet 1000 MG PO ×2 (08:24→22:29)
--- NOTE | 2022-05-08 09:45 | NURSING ---
Coater Carbon Paper Note; MDS Complete
[2022-05-08 11:00] VITALS: PULSE 62; RESP 16; O2SAT 97
--- NOTE | 2022-05-08 13:22 | CASEMGMT ---
Social Work BIMS () and PHQ-9 (06/01) completed for MDS assessment. Genoveva Chapman MSW INSTITUTIONAL CUSTODIAN
[2022-05-08 14:35] VITALS: BP 161/78; PULSE 69; RESP 16; TEMP 36; O2SAT 94
[2022-05-08] MEDS: Pramipexole Di-HCl 1 MG Tablet 1.5 MG PO (20:00)
[2022-05-08] MEDS: Anastrozole 1 MG TABLET PO ×2 (22:23→22:29)
[2022-05-08] MEDS: Zolpidem Tartrate 5 MG Tablet PO (22:31)
[2022-05-09] MEDS: Venlafaxine XR 150 MG Capsule PO (04:56)
[2022-05-09] MEDS: Venlafaxine XR 75 MG Capsule PO (04:56)
[2022-05-09] MEDS: NYSTATIN 500,000 UNIT/5 ML UDC 500000 UNIT PO ×4 (04:56→21:54)
[2022-05-09] MEDS: Cholecalciferol (Vit D3) 125 MCG CAPSULE (5,000 UNITS) PO (04:58)
[2022-05-09 07:22] LABS: Absolute Lymphocyte Count 2.56 X10^3/uL (0.83-4.51); Absolute Neutrophil Count 5.7 X10^3/uL (2.0-7.7); Basophil# 0.04 X10^3/uL; Basophil% 0.4 % (0-1); Eosinophil# 0.24 X10^3/uL; Eosinophils% 2.6 % (0-5); Hematocrit 41.1 % (37-47); Hemoglobin 12.6 g/dL (12.0-15.0); Lymphocyte # 2.56 X10^3/ul (0.83-4.51); Mean Corp Hgb Conc 30.7 g/dL (32-36); Mean Corpuscular Hgb 26.3 pg (27.0-32.0); Mean Corpuscular Volume 85.8 fL (81-99); Mean Platelet Vol. 10.5 fl (6.2-12.0); Monocyte# 0.52 X10^3/uL; Monocyte% 5.7 % (0-10); NRBC Flagged by Analyzer 0 % (0-5); Neutrophil # 5.74 X10^3/uL (2.7-7.7); Neutrophil % 62.9 % (47-70); Platelet Count 255 K/mm3 (150-450); RBC Distribution Width CV 12.6 % (11.6-14.6); RBC Distribution Width SD 39.5 fl (35.1-43.9); Red Blood Count 4.79 M/mm3 (4.2-5.4); White Blood Count 9.1 K/mm3 (4.4-11.0)
[2022-05-09 07:47] LABS: Anion Gap 6 (5-15); BUN 18 mg/dL (7-18); BUN/Creat Ratio 22.2 RATIO (10-20); Calcium,Total 9.2 mg/dL (8.5-10.1); Chloride 107 mmol/L (98-107); Creatinine, Serum 0.81 mg/dL (0.55-1.02); EST Glomerular Filtration Rate 74 mL/min (>60); Est Glom Filt Rate - Afr Amer 90 mL/min (>60); Estimated Creatinine Clearance 58.15 ml/min; Glucose 99 mg/dL (74-106); Potassium 4.3 mmol/L (3.5-5.1); Sodium Level 140 mmol/L (136-145)
[2022-05-09] MEDS: Aspirin 325 MG Tablet PO (08:31)
[2022-05-09] MEDS: Acetaminophen 500 MG Tablet 1000 MG PO (08:32)
[2022-05-09] MEDS: Losartan Potassium 100 MG Tablet PO (10:35)
[2022-05-09] MEDS: Tuberculin,Purif.prot.deriv. 50 TU/ML Vial 0.1 ML ID (10:36)
[2022-05-09 15:35] VITALS: BP 155/84; PULSE 66; RESP 16; TEMP 36.1; O2SAT 95
[2022-05-09] MEDS: Pramipexole Di-HCl 1 MG Tablet 1.5 MG PO (21:54)
[2022-05-09] MEDS: Zolpidem Tartrate 5 MG Tablet PO (21:57)
[2022-05-10] MEDS: Cholecalciferol (Vit D3) 125 MCG CAPSULE (5,000 UNITS) PO (06:19)
[2022-05-10] MEDS: Venlafaxine XR 75 MG Capsule PO (06:19)
[2022-05-10] MEDS: Venlafaxine XR 150 MG Capsule PO (06:19)
[2022-05-10] MEDS: NYSTATIN 500,000 UNIT/5 ML UDC 500000 UNIT PO ×4 (06:20→22:57)
[2022-05-10] MEDS: Losartan Potassium 100 MG Tablet PO (06:20)
[2022-05-10 06:26] VITALS: BP 156/72; PULSE 69
[2022-05-10] MEDS: Aspirin 325 MG Tablet PO (08:13)
[2022-05-10] MEDS: Acetaminophen 500 MG Tablet 1000 MG PO ×2 (08:13→22:57)
[2022-05-10 09:04] VITALS: PULSE 79; RESP 16; O2SAT 98
[2022-05-10 14:14] VITALS: BP 139/81; PULSE 68; RESP 16; TEMP 36.4; O2SAT 96
--- NOTE | 2022-05-10 21:06 | NURSING ---
Paged Dr. Blackmon w/ immediate return phone call. Requested scheduled Senna S be changed to PRN. Telephone order received and noted on JUN.
[2022-05-10] MEDS: Anastrozole 1 MG TABLET PO (22:57)
[2022-05-10] MEDS: Zolpidem Tartrate 5 MG Tablet PO (22:57)
[2022-05-10] MEDS: Pramipexole Di-HCl 1 MG Tablet 1.5 MG PO (22:58)
[2022-05-11] MEDS: Venlafaxine XR 75 MG Capsule PO (05:07)
[2022-05-11] MEDS: Cholecalciferol (Vit D3) 125 MCG CAPSULE (5,000 UNITS) PO (05:07)
[2022-05-11] MEDS: Venlafaxine XR 150 MG Capsule PO (05:07)
[2022-05-11] MEDS: NYSTATIN 500,000 UNIT/5 ML UDC 500000 UNIT PO ×4 (05:08→22:40)
[2022-05-11] MEDS: Losartan Potassium 100 MG Tablet PO (05:08)
[2022-05-11 05:12] VITALS: BP 149/62; PULSE 65
[2022-05-11] MEDS: Aspirin 325 MG Tablet PO (08:25)
[2022-05-11 16:00] VITALS: BP 131/72; PULSE 72; RESP 18; TEMP 36; O2SAT 99
--- NOTE | 2022-05-11 18:57 | CASEMGMT ---
Social Work Pt contacted this worker requesting to DC. SW spoke with pt and and offered DC 05/14, as insurance update is today and most likely will issue NOMNC for that date. Pt agreeable and requesting outpatient PT as a location of Ortho Drs recommendation, and a hospital bed. SW educated to pt may not qualify for hospital bed through insurance. Pt agreeable to pay privately. SW to refer to [facility] and outpatient PT facility for DC. to transport. Plan: DC home with 05/14, outpatient PT, hospital bed RAISA Dillard
--- NOTE | 2022-05-11 19:40 | DS.PCM_ITS ---
Providers Date of Admission: 05/01/22 Primary Care Physician: Dr. Rom Redding, DO Reason For Visit: L. REVISION GLUTEAL MEDIUS Diagnosis Discharge Diagnosis (1) Debility: Status: Acute Code(s): R53.81 - Other malaise (2) Tear of left gluteus medius tendon: Status: Acute Code(s): S76.012A - Strain of muscle, fascia and tendon of left hip, initial encounter (3) Restless leg syndrome: Status: Acute Code(s): G25.81 - Restless legs syndrome (4) Depression: Status: Acute Code(s): F32.A - Depression, unspecified (5) Insomnia: Status: Acute Code(s): G47.00 - Insomnia, unspecified (6) Leiomyosarcoma: Status: Acute Code(s): C49.9 - Malignant neoplasm of connective and soft tissue, unspecified (7) Vitamin D deficiency: Status: Acute Code(s): E55.9 - Vitamin D deficiency, unspecified (8) Obstructive sleep apnea: Status: Acute Code(s): G47.33 - Obstructive sleep apnea (adult) (pediatric) Plan 72 year old female with below past medical history hospitalized for scope revision left hip surgery, admitted to TCU with debility, here for rehabilitation, strengthening, prior to discharge home with . * Debility - PT/OT. * Pain - Tylenol 1000mg q6h prn pain (1-5), Oxycodone 5mg q4h prn pain (6-10). * Bowel - senna/colace 1 tablet bid, Dulcolax 10mg pr x 1 prn, MOM 30ml po x 1 prn. * Adult immunization - Administer pneumonia vaccine, covid19 vaccine, flu vaccine as appropriate. * DVT prophylaxis - Aspirin 325mg daily thru 06/01/2022. * Leiomyosarcoma - Anastrozole 1mg qhs. * Nutrition - Ensure Plus 120ml po tidcm. * Restless Leg syndrome - Mirapex 1.5mg qhs. 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 * Vitamin D deficiency - D3 125mcg daily. * Insomnia - Zolpidem 5mg qhs, stable chronic group home use, GDR not recommended. Medications at Discharge Home Medications anastrozole 1 mg tablet (Arimidex) 1 mg PO QHS Leiomyosarcoma 11/07/18 venlafaxine 150 mg capsule,extended release 24 hr 150 mg PO DAILY Depression 11/07/18 venlafaxine 75 mg capsule,extended release 24 hr 75 mg PO DAILY Depression 11/07/18 zolpidem 10 mg tablet 10 mg PO QHS Insomnia 04/01/19 cholecalciferol (vitamin D3) 125 mcg (5,000 unit) tablet (Vitamin D3) 125 mcg PO DAILY supplement 03/25/21 acetaminophen 500 mg tablet 1,000 mg PO Q6H PRN PRN Pain 05/01/22 pramipexole 1.5 mg tablet 1.5 mg PO QHS restless leg 05/01/22 aspirin 325 mg tablet 325 mg PO BREAKFAST #0 tabs 05/11/22 losartan 100 mg tablet 100 mg PO DAILY 30 days #30 tabs 05/11/22 Hospital Course Operations - (See below.) Procedures None Summary of Care Provided Minutes Spent on Discharge: 35 Hospital Course: 72 year old female with below past medical history hospitalized for scope revision left hip surgery, admitted to TCU with debility, here for rehabilitation, strengthening, prior to discharge home with . Discharge home with 05/14/2022, outpatient PT, Hospital Bed. Physical Exam Const alert General Appearance: cooperative HEENT normocephalic Eyes PERRL and EOMs intact bilaterally Neck supple, no JVD and no carotid bruits Resp normal respiratory effort, normal air movement and clear to auscultation bilaterally Cardio regular rate and regular rhythm GI normal to inspection, nondistended, normoactive bowel sounds, non-tender and non-distended Extremity normal capillary refill General Extremity: Negative for edema Skin no rashes or lesions noted General Skin Exam: no breakdown Psych affect normal Appearance: appropriate Weight / BMI Weight Weight: 101.695 kg Body Mass Index (BMI) 38.5 ABG / Lab / Microbiology Data Result Diagrams: 05/09/22 07:13 05/09/22 07:13 Microbiology: Microbiology 05/05/22 06:20 Nasal Secretion SARS-CoV-2 Antigen (Rapid) - Final 05/04/22 12:00 Nasal Secretion SARS-CoV-2 Antigen (Rapid) - Final 05/02/22 05:00 Nasal Secretion SARS-CoV-2 Antigen (Rapid) - Final D/C Instructions Discharge Diet: No restrictions Discharge Activity: Return to Normal Activity, May Shower and Use Walker Weight Bearing Status: Weight bearing as tolerated Call your doctor if you observe: Fever of 101 or Higher, Inability to urinate, Inability to have a bowel movement, Shortness of breath, Dizziness, Fainting spells, Swelling in the ankles, Chest pain and Uncontrolled pain Additional Instructions: Discharge home with 05/14/2022, outpatient PT, Hospital Bed. Please Follow Up With: MD Amanda When: As scheduled. Meaningful Use Info Meaningful Use Diagnoses (Choose all that apply): None applicable Discharge Plan Admission Admit Date/Time: 05/01/22 16:24 Primary Reason for Your Visit: Debility. Attending Provider: Zia Blackmon Chi Primary Care Provider: Rom Redding Instructions Additional Instructions / Restrictions: Discharge home with 05/14/2022, outpatient PT, Hospital Bed. Discharge Orders/Prescriptions Prescriptions: New aspirin 325 mg Tablet 325 mg PO BREAKFAST Qty: 0 0RF losartan 100 mg Tablet 100 mg PO DAILY 30 Days Qty: 30 0RF Continued venlafaxine 150 mg capsule,extended release 24hr 150 mg PO DAILY venlafaxine 75 mg capsule,extended release 24hr 75 mg PO DAILY anastrozole [Arimidex] 1 mg tablet 1 mg PO QHS zolpidem 10 MG tablet 10 mg PO QHS cholecalciferol (vitamin D3) [Vitamin D3] 125 mcg (5,000 unit) Tablet 125 mcg PO DAILY acetaminophen 500 mg tablet 1,000 mg PO Q6H PRN PRN (Reason: Pain) pramipexole 1.5 mg tablet 1.5 mg PO QHS Discontinued oxycodone 5 mg Tablet 5 mg PO Q4H PRN PRN (Reason: Pain Score 4-10) 7 Days Qty: 42 0RF Referrals / Follow Up: Rom Redding DO [Primary Care Provider] - Disposition Disposition (needs filled in before D/C Order can be placed): Home, Self Care
[2022-05-11 21:00] VITALS: PULSE 68; RESP 16; O2SAT 97
[2022-05-11] MEDS: Anastrozole 1 MG TABLET PO (22:39)
[2022-05-11] MEDS: Pramipexole Di-HCl 1 MG Tablet 1.5 MG PO (22:39)
[2022-05-11] MEDS: Zolpidem Tartrate 5 MG Tablet PO (22:43)
[2022-05-12] MEDS: Cholecalciferol (Vit D3) 125 MCG CAPSULE (5,000 UNITS) PO (06:33)
[2022-05-12] MEDS: Venlafaxine XR 75 MG Capsule PO (06:34)
[2022-05-12] MEDS: Losartan Potassium 100 MG Tablet PO (06:34)
[2022-05-12] MEDS: Venlafaxine XR 150 MG Capsule PO (06:34)
[2022-05-12] MEDS: NYSTATIN 500,000 UNIT/5 ML UDC 500000 UNIT PO ×3 (06:34→22:43)
[2022-05-12] MEDS: Acetaminophen 500 MG Tablet 1000 MG PO ×2 (08:33→22:46)
[2022-05-12] MEDS: Aspirin 325 MG Tablet PO (08:33)
--- NOTE | 2022-05-12 15:42 | CASEMGMT ---
Social Work Pt requesting to speak with SW regarding discharge. Pt states she spoke with surgeon today and has decided to be discharged tomorrow 05/13 rather than 05/14. Pt states she will be getting outpatient PT at [facility] and this has been set up at surgeons office today. Pt states that she has spoke [place] [facility] [place] of bed and she is confident it will be delivered tomorrow for her return home. Pt has all other needed DME. Pt's plans to transport her home. SW placed call to Kirst[place] [facility] and updated on change of discharge date and that pt has spoke [place] [facility] [place] Kirstie to reach out to branch to confirm bed delivery. Team updated on change of discharge plan. Discharge Date: 05/13/22 Discharge Disposition: Home with . Out Patient PT at [facility]. Hospital Bed through [facility]
[2022-05-12 16:00] VITALS: BP 129/71; PULSE 69; RESP 16; TEMP 36.2; O2SAT 98
[2022-05-12 22:00] VITALS: PULSE 67; RESP 16; O2SAT 97
[2022-05-12] MEDS: Zolpidem Tartrate 5 MG Tablet PO (22:42)
[2022-05-12] MEDS: Anastrozole 1 MG TABLET PO (22:43)
[2022-05-12] MEDS: Pramipexole Di-HCl 1 MG Tablet 1.5 MG PO (22:44)
[2022-05-13] MEDS: Venlafaxine XR 150 MG Capsule PO (05:58)
[2022-05-13] MEDS: Cholecalciferol (Vit D3) 125 MCG CAPSULE (5,000 UNITS) PO (05:58)
[2022-05-13] MEDS: NYSTATIN 500,000 UNIT/5 ML UDC 500000 UNIT PO (05:58)
[2022-05-13] MEDS: Losartan Potassium 100 MG Tablet PO (05:58)
[2022-05-13] MEDS: Venlafaxine XR 75 MG Capsule PO (05:58)
[2022-05-13] MEDS: Aspirin 325 MG Tablet PO (07:36)
[2022-05-13 08:38] VITALS: PULSE 78; RESP 18; O2SAT 99
[2022-05-13 08:43] VITALS: BP 154/66; PULSE 68; RESP 16; TEMP 36.4; O2SAT 97
--- NOTE | 2022-05-13 09:24 | CASEMGMT ---
Social Work BIMS () and PHQ-9 () completed for MDS assessment. Genoveva Chapman MSW MEASUREMENT SUPERINTENDENT
--- NOTE | 2022-05-14 14:37 | MDS.RN ---
Information for the mds was obtained from review of the clinical record, interview of resident, staff and direct observation of resident's care.
== END 2022-05-13 10:24 | disposition home or self-care (01) | DRG 560 ==
PROVIDERS: Admitting Provider Family Medicine Geriatric Medicine; PCP Family Medicine; Visit Provider Family Medicine Geriatric Medicine
DX: Z47.89 Encounter for other orthopedic aftercare (principal); C49.9 Malignant neoplasm of connective and soft tissue, unspecified; G25.81 Restless legs syndrome; E55.9 Vitamin D deficiency, unspecified; G47.33 Obstructive sleep apnea (adult) (pediatric); M79.7 Fibromyalgia; K21.9 Gastro-esophageal reflux disease without esophagitis; S76.012D Strain of muscle, fascia and tendon of left hip, subsequent encounter; F32.A Depression, unspecified; Z87.891 Personal history of nicotine dependence; Z79.899 Other long term (current) drug therapy; X58.XXXD Exposure to other specified factors, subsequent encounter
CPT/HCPCS: 36415; 80048; 85025; 87426; 87811; 97110; 97116; 97162; 97166; 97530; 97535; 97802

== ENCOUNTER → 2022-05-26 | Outpatient (CLI) | payer MEDICARE, SELFPAY ==
--- NOTE | 2022-05-26 12:15 | ETH_PTH ---
PATIENT: KAYLA WILKERSON LOC: [facility] U#:[id number] AGE/SX: 72/F ROOM: RE05/26/[address]: Dr. Juan A Gallardo MD : 1950 BED: DIS: 05/26/2022 SPEC #: [id number] RECD: 05/26/22 14:55 STATUS: ROSEANN SOOD #: [id number] PALAK: 05/26/22 12:[address]: Juan A Gallardo DEPT: SURGICAL PATHOLOGY RECD BY: Katie Julian ENTERED: 05/27/22 07:10 SP TYPE: ETH TISS OTHR DR: Dr. Rom Redding, [facility] Tissues: A - Ethmoid sinus, NOS B - Ethmoid sinus, NOS Procedures: Decalcification bone/plaque Surgery Specimen Level IV HEADER OPERATION: Functional endoscopic sinus surgery PRE-OP DIAGNOSIS: Chronic pansinusitis TISSUE SUBMITTED: A ? Right nasal sinus contents, B ? Left nasal sinus contents MICROSCOPIC DIAGNOSIS A. Right nasal sinus contents: Fragments of respiratory mucosa with chronic inflammation and bone. B. Left nasal sinus contents: Fragments of respiratory mucosa with chronic inflammation and bone. See comment. SJ:jeffry 06/01/2022 COMMENT B. Special stain for fungi is positive for numerous organisms (hyphae); matched control is appropriate. Correlation with clinical findings and appropriate follow up are necessary. Case has been reviewed in consultation with Dr. Napier who concurs with the above diagnosis. IDC:AM MICROSCOPIC DESCRIPTION Slides are reviewed. GROSS DESCRIPTION A - Received in fixative is one container labeled with the patient's name and designated right nasal sinus contents. The specimen consists of multiple irregular fragments of renee soft tissue mixed with fragments of bone including turbinate that in aggregate measure 5.0 x 3.0 x 0.3 cm. The specimen is totally submitted in two cassettes after decalcification. B - Received in fixative is one container labeled with the patient's name and designated left nasal sinus contents. The specimen consists of a piece of renee soft tissue measuring 1.5 x 0.3 x 0.1 cm. Also received is a piece of mucosal tissue with underlying bone consistent with turbinate measuring 2.2 x 0.5 x 0.3 cm. Also present in the container is a piece of brownish, amorphous tissue measuring 1.0 x 0.7 x 0.4 cm. The entire specimen is submitted in one cassette after decalcification. / SJ:rg 05/27/2022 TC:3 CPT: 01965 x2, 36642 x2, 60561
== END | disposition home or self-care (01) ==
LOC: LABSPEC 15:30
PROVIDERS: PCP Family Medicine; Referring Provider Otolaryngology; Visit Provider Otolaryngology
DX: J32.4 Chronic pansinusitis (principal)
CPT/HCPCS: 88305; 88311

== ENCOUNTER → 2023-03-01 | Outpatient (CLI) | payer MEDICARE, SELFPAY ==
[2023-03-01 10:34] LABS: Absolute Lymphocyte Count 1.86 X10^3/uL (0.83-4.51); Absolute Neutrophil Count 6.1 X10^3/uL (2.0-7.7); Basophil# 0.03 X10^3/uL; Basophil% 0.4 % (0-1); Eosinophils% 1.2 % (0-5); Hematocrit 34.8 % (37-47); Lymphocyte # 1.86 X10^3/ul (0.83-4.51); Lymphocyte % 21.7 % (19-41); Mean Corp Hgb Conc 28.7 g/dL (32-36); Mean Corpuscular Hgb 20.4 pg (27.0-32.0); Mean Corpuscular Volume 71.2 fL (81-99); Mean Platelet Vol. 11.7 fl (6.2-12.0); Monocyte# 0.45 X10^3/uL; Monocyte% 5.3 % (0-10); NRBC Flagged by Analyzer 0 % (0-5); Neutrophil # 6.09 X10^3/uL (2.7-7.7); Platelet Count 247 K/mm3 (150-450); RBC Distribution Width CV 15.5 % (11.6-14.6); RBC Distribution Width SD 39.1 fl (35.1-43.9); Red Blood Count 4.89 M/mm3 (4.2-5.4); White Blood Count 8.6 K/mm3 (4.4-11.0)
[2023-03-01 11:02] LABS: Vitamin D,25 Hydroxy 55.5 ng/mL
[2023-03-01 11:07] LABS: ALB/GLOB Ratio 0.9 RATIO (0.9-2.4); AST(SGOT) 16 U/L (15-37); Alanine Aminotransfer ALT/SGPT 18 U/L (13-56); Albumin, Serum 3.5 g/dL (3.2-5.0); Alkaline Phosphatase 87 U/L (45-117); Anion Gap 5 (5-15); BUN 20 mg/dL (7-18); BUN/Creat Ratio 23.4 RATIO (10-20); Calcium,Total 8.8 mg/dL (8.5-10.1); Chloride 108 mmol/L (98-107); Cholesterol 194 mg/dL (200); Creatinine, Serum 0.85 mg/dL (0.55-1.02); EST Glomerular Filtration Rate 70 mL/min (>60); Est Glom Filt Rate - Afr Amer 84 mL/min (>60); Globulin 3.8 g/dL (2.2-4.2); Glucose 98 mg/dL (74-106); High Density Lipoprotein 68 mg/dL; Protein, Total 7.3 g/dL (6.4-8.2); Sodium Level 138 mmol/L (136-145); Triglycerides 87 mg/dL; Very Low Density Lipoprotein 17 mg/dL (5-40)
== END | disposition home or self-care (01) ==
LOC: MTLAB 08:11
PROVIDERS: PCP Family Medicine; Referring Provider Nurse Practitioner Family; Visit Provider Nurse Practitioner Family
DX: I10 Essential (primary) hypertension (principal); E55.9 Vitamin D deficiency, unspecified; R73.01 Impaired fasting glucose; E78.5 Hyperlipidemia, unspecified
CPT/HCPCS: 36415; 80053; 80061; 82306; 85025

== ENCOUNTER → 2023-03-19 | Outpatient (CLI) | payer MEDICARE, SELFPAY ==
--- NOTE | 2023-03-19 08:02 | CT_ITS ---
STUDY: CT CHEST, ABDOMEN T PELVIS WITH CONTRAST REASON FOR EXAM: Female, 72 years old. LEIOMYSARCOMA RADIATION DOSAGE (If Supplied By Facility): CTDIvol = ( 22.30 ) mGy, DLP = ( 2073.10 ) mGycm TECHNIQUE: Transaxial imaging was performed following intravenous administration of IV 100mL Isovue-300. Multiplanar coronal and sagittal images were reformatted. Individualized dose optimization techniques were used for this CT. COMPARISON: Comparison is made with prior study dated March 16, 2022. FINDINGS: CHEST Once again, 3 adjacent soft tissue nodule is seen in the anterior aspect of the right upper lobe. The largest nodule presently measures 1.9 cm x 1.6 cm. This has decreased in size as compared to prior study. Stable 7.9 mm noncalcified nodule in the peripheral lateral aspect of the left lower lobe. There is no demonstrated pleural abnormality. Mild coronary artery calcification. Normal mediastinum. Normal hilar regions. Normal unenhanced pulmonary arteries. Normal aorta arch and descending thoracic aorta. There is demineralization of the thoracic spine. ABDOMEN Normal liver. There are multiple gallstones. Normal spleen. Normal pancreas. Normal bilateral adrenal glands. Normal right kidney. Normal left kidney. Stable appearance of the postseptal gastrectomy. Normal small intestine. There are multiple colonic diverticula consistent with diverticulosis. The appendix is visualized and appears normal. There is scattered atherosclerotic calcification of the abdominal aorta, without a demonstrated aneurysm. Normal inferior vena cava. There is borderline retroperitoneal lymphadenopathy with enlarged nodes no greater than 10mm in the short axis diameter. Normal abdominal wall. Prior fusion at the L3-L4 level and L4-L5 level. Stable degenerative changes. PELVIS Normal urinary bladder. There is no pelvic fluid. There is no pelvic lymphadenopathy or mass lesion. CT/CT Chest, Abd, Pel w/Contrast IMPRESSION: Interval mild decrease in size of the nodular densities seen in the peripheral aspect of the left upper lobe. Electronically Signed: Louie Forbes MD at 14:59 EST ,
== END | disposition home or self-care (01) ==
LOC: CT 08:00
PROVIDERS: PCP Family Medicine
DX: C49.9 Malignant neoplasm of connective and soft tissue, unspecified (principal); C78.01 Secondary malignant neoplasm of right lung; C78.02 Secondary malignant neoplasm of left lung
CPT/HCPCS: 71260; 74177; Q9967

== ENCOUNTER → 2023-07-06 | Outpatient (CLI) | payer MEDICARE, SELFPAY ==
--- NOTE | 2023-07-06 09:16 | BI_ITS ---
MAMMOGRAPHY - BILATERAL SCREENING REASON FOR EXAM: Female, 73 years old. Routine annual screening examination. PERTINENT HISTORY: Non-contributory. Remote right excisional breast biopsy. TECHNIQUE: Digital bilateral breast gregory (3D mammographic acquisition) in the CC and MLO projections. 2-D mediolateral oblique (MLO) and craniocaudad (CC) views of both breasts were obtained. CAD: Full Field Digital Mammography with Computer Added Detection was performed. COMPARISON: Comparison is made with prior study dated April 01, 2022 and April 03, 2021. FINDINGS: Breast Composition: The breasts are almost entirely fatty. There are no dominant masses or suspicious calcifications. No other significant abnormalities are identified. There has been no significant change since the prior study. BI/SCRN MAMM (CAD)W/GREGORY BILAT IMPRESSION: Stable bilateral screening mammogram. Yearly follow-up mammogram recommended. (A) ASSESSMENT CATEGORY: BIRADS Category 1: Negative. A letter regarding these results will be sent to the patient by the facility within 30 days. Approximately 10% of breast cancers are not detected by mammography. A normal mammogram should not delay biopsy of a clinically suspicious abnormality. [id number] Electronically Signed: Louie Forbes MD at 10:53 EDT ,
--- NOTE | 2023-07-06 09:23 | BD_ITS ---
STUDY: DUAL ENERGY X-RAY ABSORPTIOMETRY / DXA REASON FOR EXAM: Female, 73 years old. M810 TECHNIQUE: Bone Mineral Density (BMD) measurements of lumbar spine and bilateral hips were obtained. COMPARISON: Comparison is made with prior study dated April 02, 2020. FINDINGS: Lumbar Spine (L1-L4): g/cm2 (0.713) / T-score (-2.4) / Z-score (-0.4) Findings are suggestive of osteopenia with a high fracture risk. Left Femur Total: g/cm2 (0.741) / T-score (-1.7) / Z-score (-0.1) Left Femoral Neck: g/cm2 (0.489) / T-score (-3.2) / Z-score (-1.4) Right Femur Total: g/cm2 (0.796) / T-score (-1.2) / Z-score (0.4) Right Femoral Neck: g/cm2 (0.588) / T-score (-2.3) / Z-score (-0.5) The T-Scores on the most recent prior examination were: Lumbar Spine (L1-L4): There has been worsening of bone density since the previous examination. Left Femur Total: which represents a worsening of 10%. Right Femur Total: which represents a worsening of 5.4%. BD/Dexa Bone Density Study IMPRESSION: The patient is considered osteoporotic as outlined below according to World Alexx Organization (WHO) criteria with a high fracture risk. There has been worsening of bone density since the previous examination. Reference Information: The T-score is the number of standard deviations above or below the standard which is normal for young adults at their peak bone mineral density. The World Health Organization (WHO) interprets the T-scores as follows: Above -1 Normal bone density Between -1 and -2.5 Osteopenia Equal to / or below -2.5 Osteoporosis As a practical clinical guideline, osteopenia may be graded as follows: Mild -1 through -1.5 Moderate -1.6 through -2.0 Severe -2.1 through -2.4 The Z-score is the number of standard deviations above or below age-matched controls. A Z-score of less than -1.5 would be considered abnormal. References: 1. NIH Osteoporosis and Related Bone Diseases www osteo.org 2. International Society for Clinical Densitometry www iscd.org 3. National Osteoporosis Foundation www nof.org Electronically Signed: Louie Forbes MD at 9:23 EDT ,
== END | disposition home or self-care (01) ==
LOC: OPBD 09:15
PROVIDERS: PCP Family Medicine; Referring Provider Nurse Practitioner Family; Visit Provider Nurse Practitioner Family
DX: Z12.31 Encounter for screening mammogram for malignant neoplasm of breast (principal); M81.0 Age-related osteoporosis without current pathological fracture
CPT/HCPCS: 77063; 77067; 77080

== ENCOUNTER → 2023-09-27 | Outpatient (CLI) | payer MEDICARE, SELFPAY ==
--- NOTE | 2023-09-27 15:55 | RAD_ITS ---
STUDY: X-RAY - CERVICAL SPINE REASON FOR EXAM: Female, 73 years old. Neck pain. TECHNIQUE: 5 view(s) of the cervical spine were obtained. COMPARISON: October 11, 2018 FINDINGS: Stable osteopenia. Normal anterior atlantoaxial articulation. Normal odontoid process. Normal cervical lordosis. Diffuse moderate to marked uncovertebral and facet sclerosis, similar to what was present on the prior study. Intervertebral disc space narrowing at C4-5, C5-6 and C6-7 unchanged from prior study. Anterior bony neural foraminal encroachment mainly at C5-6, unchanged. Normal soft tissues. RAD/Cerv Spine 4 or 5 Views IMPRESSION: Stable osteopenia with diffuse moderate cervical spondylosis most marked at C5-6. Electronically Signed: Sanket Da Silva MD at 15:28 EDT ,
[2023-09-27 18:06] LABS: Absolute Lymphocyte Count 1.67 X10^3/uL (0.83-4.51); Basophil# 0.02 X10^3/uL; Basophil% 0.2 % (0-1); Eosinophil# 0.01 X10^3/uL; Eosinophils% 0.1 % (0-5); Hemoglobin 12.6 g/dL (12.0-15.0); Lymphocyte # 1.67 X10^3/ul (0.83-4.51); Lymphocyte % 17.9 % (19-41); Mean Corpuscular Hgb 22.8 pg (27.0-32.0); Mean Corpuscular Volume 76.1 fL (81-99); Mean Platelet Vol. 11.1 fl (6.2-12.0); Monocyte# 0.59 X10^3/uL; Monocyte% 6.3 % (0-10); NRBC Flagged by Analyzer 0 % (0-5); Neutrophil % 75.2 % (47-70); POSITIVE MORPHOLOGY YES; Platelet Count 209 K/mm3 (150-450); RBC Distribution Width CV 20.4 % (11.6-14.6); RBC Distribution Width SD 54.8 fl (35.1-43.9); Red Blood Count 5.52 M/mm3 (4.2-5.4); White Blood Count 9.3 K/mm3 (4.4-11.0)
[2023-09-27 18:38] LABS: Ferritin 16 ng/mL (8-252); Iron 79 ug/dL (50-170)
[2023-09-27 18:51] LABS: Differential Indicated SCAN CRITERIA MET
[2023-09-27 18:53] LABS: Anisocytosis RARE; Microcytosis RARE; Ovalocyte RARE; Platelet Estimate ADEQUATE (ADEQ); Platelet Morphology LARGE; Red Cell Morphology N CHROM NORMAL (NORM C&C)
== END | disposition home or self-care (01) ==
PROVIDERS: PCP Nurse Practitioner Family; Referring Provider Anesthesiology Pain Medicine; Visit Provider Anesthesiology Pain Medicine
DX: D50.9 Iron deficiency anemia, unspecified (principal); M47.812 Spondylosis without myelopathy or radiculopathy, cervical region
CPT/HCPCS: 36415; 72050; 82728; 83540; 85025

== ENCOUNTER → 2024-01-31 | Outpatient (CLI) | payer MEDICARE, SELFPAY ==
[2024-01-31 12:18] LABS: Absolute Lymphocyte Count 1.45 X10^3/uL (0.83-4.51); Absolute Neutrophil Count 10.3 X10^3/uL (2.0-7.7); Basophil# 0.03 X10^3/uL; Basophil% 0.2 % (0-1); Hematocrit 41.9 % (37-47); Hemoglobin 13.3 g/dL (12.0-15.0); Lymphocyte # 1.45 X10^3/ul (0.83-4.51); Lymphocyte % 11.7 % (19-41); Mean Corp Hgb Conc 31.7 g/dL (32-36); Mean Corpuscular Hgb 27.3 pg (27.0-32.0); Mean Platelet Vol. 10.8 fl (6.2-12.0); Monocyte% 4.8 % (0-10); NRBC Flagged by Analyzer 0 % (0-5); Neutrophil # 10.26 X10^3/uL (2.7-7.7); Neutrophil % 82.9 % (47-70); Platelet Count 245 K/mm3 (150-450); RBC Distribution Width CV 13.8 % (11.6-14.6); RBC Distribution Width SD 43.8 fl (35.1-43.9); Red Blood Count 4.87 M/mm3 (4.2-5.4); White Blood Count 12.4 K/mm3 (4.4-11.0)
[2024-01-31 12:24] LABS: Vitamin D,25 Hydroxy 46.8 ng/mL
[2024-01-31 12:46] LABS: ALB/GLOB Ratio 1.1 RATIO (0.9-2.4); AST(SGOT) 12 U/L (15-37); Alanine Aminotransfer ALT/SGPT 21 U/L (13-56); Albumin, Serum 3.9 g/dL (3.2-5.0); Alkaline Phosphatase 77 U/L (45-117); Anion Gap 5 (5-15); BUN 16 mg/dL (7-18); BUN/Creat Ratio 17.9 RATIO (10-20); Calcium,Total 9.3 mg/dL (8.5-10.1); Chloride 104 mmol/L (98-107); Cholesterol 201 mg/dL (200); Creatinine, Serum 0.89 mg/dL (0.55-1.02); EST Glomerular Filtration Rate 66 mL/min (>60); Est Glom Filt Rate - Afr Amer 80 mL/min (>60); Globulin 3.7 g/dL (2.2-4.2); Glucose 94 mg/dL (74-106); High Density Lipoprotein 68 mg/dL; Potassium 4.5 mmol/L (3.5-5.1); Protein, Total 7.6 g/dL (6.4-8.2); Sodium Level 134 mmol/L (136-145); Triglycerides 107 mg/dL; Very Low Density Lipoprotein 21 mg/dL (5-40)
== END | disposition home or self-care (01) ==
LOC: BFHLAB 10:22
PROVIDERS: PCP Nurse Practitioner Family; Referring Provider Nurse Practitioner Family; Visit Provider Nurse Practitioner Family
DX: E55.9 Vitamin D deficiency, unspecified (principal); I10 Essential (primary) hypertension; E78.5 Hyperlipidemia, unspecified
CPT/HCPCS: 36415; 80053; 80061; 82306; 85025

== ENCOUNTER → 2024-05-11 | Outpatient (CLI) | payer MEDICARE, SELFPAY ==
--- NOTE | 2024-05-11 06:59 | CT_ITS ---
PROCEDURE: CT CHEST, ABD, PEL W/CONTRAST REASON FOR EXAM: Follow-up for history of leiomyosarcoma. 100 cc of Isovue 300. TECHNIQUE: Chest, abdomen and pelvis CT with intravenous contrast. 100 cc of Isovue-300. CONTRAST: COMPARISON: Comparison is made with prior study dated March 19, 2023. FINDINGS: CT CHEST: Hardware: None. Lymph nodes: No mediastinal hilar or axillary lymphadenopathy. Heart and Vasculature: Normal heart size. No pericardial effusion. Atherosclerotic calcifications of the thoracic aorta. Pulmonary arteries are unremarkable. Coronary artery calcification. Lungs and Airways: Stable appearance of the previously seen nodular densities in the anterior medial aspect of the right upper lobe. Stable 7.9 mm noncalcified nodule in the peripheral lateral aspect of the left lower lobe. Pleura: No pleural effusion. No pneumothorax. Bones: Unremarkable. CT ABDOMEN/PELVIS: Liver: Unremarkable. Gallbladder: Several calcified gallstones. Spleen: Unremarkable. Pancreas: Unremarkable. Adrenals: Unremarkable. Kidneys: Unremarkable. Bladder: Unremarkable. Reproductive Organs: Unremarkable. Bowel: Stable postoperative changes in the gastric antrum. Appendix: Normal. Lymph nodes: Small retroperitoneal lymph nodes. Vasculature: Mild diffuse atherosclerotic calcifications are noted. Peritoneum / Retroperitoneum: No ascites. No free air. Bones: Degenerative changes of the spine. CT/CT Chest, Abd, Pel w/Contrast IMPRESSION: Stable examination. One or more dose reduction techniques were used (e.g., Automated exposure contr ol, adjustment of the mA and/or kV according to patient size, use of iterative reconstruction technique). Reading Location: [id number]
== END | disposition home or self-care (01) ==
LOC: CT 06:58
PROVIDERS: PCP Nurse Practitioner Family; Referring Provider Obstetrics & Gynecology; Visit Provider Obstetrics & Gynecology
DX: C78.01 Secondary malignant neoplasm of right lung (principal); C78.02 Secondary malignant neoplasm of left lung; C49.9 Malignant neoplasm of connective and soft tissue, unspecified
CPT/HCPCS: 71260; 74177; Q9967

== ENCOUNTER → 2024-07-26 | Outpatient (CLI) | payer MEDICARE, SELFPAY ==
--- NOTE | 2024-07-26 15:21 | RAD_ITS ---
PROCEDURE: THORACIC SPINE 3 VIEWS 07/26/2024 REASON FOR EXAM: CHECK SCS LEAD PLACEMENT TECHNIQUE: 3 views of the thoracic spine. FINDINGS: Normal thoracic vertebral body heights. Mild multilevel disc space narrowing and endplate osteophytosis. Mild scoliosis. Paraspinal soft tissues are unremarkable. Dorsal column spinal stimulator in the lower thoracic spine. RAD/Thoracic Spine 3 Views IMPRESSION: Mild dextroscoliosis with mild degenerative disc disease. Dorsal column spinal stimulator lower thoracic spine. Reading Location: [id number]
== END | disposition home or self-care (01) ==
LOC: MTLAB 15:13 → MTRAD 15:15
PROVIDERS: PCP Nurse Practitioner Family; Referring Provider Clinical Nurse Specialist Adult Health; Visit Provider Clinical Nurse Specialist Adult Health
DX: M51.34 Other intervertebral disc degeneration, thoracic region (principal)
CPT/HCPCS: 72072